=== PATIENT | male | born 1945 | race Caucasian/White ===

== ENCOUNTER 2017-11-11 10:23 | Inpatient (IN) ==
--- NOTE | 2017-11-10 23:06 | Discharge Summary ---
<Richa Hernadez - Last Filed: 11/11/17 10:06> Date of Encounter: 11/11/17 - Discharge Diagnosis (1) Arthritis of knee, left Priority: Primary Status: Acute (2) Status post total knee replacement, left Priority: Primary Status: Acute (3) HTN (hypertension) Status: Acute Qualifiers: Hypertension type: essential hypertension Qualified Code(s): I10 - Essential (primary) hypertension (4) DMII (diabetes mellitus, type 2) Priority: Secondary Status: Chronic (5) Gout Status: Acute (6) Obesity Status: Acute - Hospital Course Hospital course: Mr. Garcia is a 72 year old male - Time Spent with Patient Total time spent providing and/or coordinating discharge services: - Discharge Medications Prescriptions: Aspirin Enteric Coated [Aspirin EC] 325 mg PO BID #20 tablet. OxyCODONGoran Immed Rel [Roxicodone 5 MG] 5 mg PO Q6HR PRN 7 Days #28 tablet PRN Reason: Severe Pain Home Medications: Aspirin Enteric Coated [Aspirin EC] 325 mg PO BID #20 tablet. 11/10/17 [Rx] OxyCODONE Immed Rel [Roxicodone 5 MG] 5 mg PO Q6HR PRN 7 Days #28 tablet [Rx] Allopurinol [Zyloprim 100 MG] 100 mg PO DAILY 11/11/17 [History] Aspirin [Adult Aspirin Regimen] 81 mg PO DAILY 11/11/17 [History] Canagliflozin [Invokana] 300 mg PO DAILY 11/11/17 [History] Colesevelam [Welchol] 3,750 mg PO DAILY 11/11/17 [History] Docusate Sodium [Colace] 100 mg PO BID 11/11/17 [History] Esomeprazole Magnesium [Nexium] 40 mg PO Q72D 11/11/17 [History] Exenatide Microspheres [Bydureon] 2 mg PO QWEEK 11/11/17 [History] Glimepiride [Amaryl] 4 mg PO BID 11/11/17 [History] Lisinopril [Zestril] 10 mg PO DAILY 11/11/17 [History] NIFEdipine [Nifedipine ER] 30 mg PO DAILY 11/11/17 [History] Vit C/E/Zn/Coppr/Lutein/Zeaxan [Preservision Areds 2 Softgel] 1 cap PO DAILY [History] Allergies/Adverse Reactions: 3 Allergy/AdvReac Type Severity Reaction Status Date / Time metformin AdvReac Gastrointestinal Verified 11/11/17 11:19 Upset Dosbnwf-Woz-Arw Reductase AdvReac Muscle Pain Verified 11/11/17 11:19 Inhibitor [Statins] Primary care physician: Bipin Dial MD - Discharge Instructions Follow Up With: Bipin Dial MD [Primary Care Provider] - <Jose Mckeon - Last Filed: 11/11/17 15:02> Orders not resulted at time of discharge: Pending orders 11/11/17 00:01 XR knee LT limited 1-2V [XR] Routine H/H [Hemoglobin and Hematocrit] [HEME] Routine Date of Encounter: 11/11/17 - Discharge Diagnosis (1) Arthritis of knee, left Priority: Primary Status: Chronic (2) Status post total knee replacement, left Priority: Primary Status: Acute (3) HTN (hypertension) Priority: Secondary Status: Chronic Qualifiers: Hypertension type: essential hypertension Qualified Code(s): I10 - Essential (primary) hypertension (4) DMII (diabetes mellitus, type 2) Priority: Secondary Status: Chronic Qualifiers: Diabetes mellitus custodial insulin use: unspecified store standards associate insulin use status Diabetes mellitus complication status: with kidney complications Diabetes mellitus complication detail: with chronic kidney disease Chronic kidney disease stage: stage 3 (moderate) Qualified Code(s): E11.22 - Type 2 diabetes mellitus with diabetic chronic kidney disease; N18.3 - Chronic kidney disease, stage 3 (moderate) (5) Gout Priority: Secondary Status: Acute Qualifiers: Gout site: unspecified site Gout etiology: unspecified cause Chronicity: unspecified Qualified Code(s): M10.9 - Gout, unspecified - Hospital Course Hospital course: Mr. Garcia is a 72 year old male - Time Spent with Patient Total time spent providing and/or coordinating discharge services: Primary care physician: Bipin Dial MD
--- NOTE | 2017-11-11 11:08 | Anesthesia Evaluation PreOp ---
Date of Encounter: 11/11/17 Time of Encounter: 11:30 - Past History Planned Operation: Left knee arthoplasty (robotic) Cardiac History: HTN, Hyperlipidemia Pulmonary History: Denies Any Significant HX JOINTER MACHINE History: Denies Any Significant HX Other Medical History: Diabetes Type II (does not require insulin), GERD Anesthesia History: No Prior Anesthetic Complications Alcohol Use: none Drug use: none Medications and Allergies Aspirin Enteric Coated [Aspirin EC] 325 mg PO BID #20 tablet. 11/10/17 [Rx] OxyCODONE Immed Rel [Roxicodone 5 MG] 5 mg PO Q6HR PRN 7 Days #28 tablet [Rx] Allopurinol [Zyloprim 100 MG] 100 mg PO DAILY 11/11/17 [History] Aspirin [Adult Aspirin Regimen] 81 mg PO DAILY 11/11/17 [History] Canagliflozin [Invokana] 300 mg PO DAILY 11/11/17 [History] Colesevelam [Welchol] 3,750 mg PO DAILY 11/11/17 [History] Docusate Sodium [Colace] 100 mg PO BID 11/11/17 [History] Esomeprazole Magnesium [Nexium] 40 mg PO Q72D 11/11/17 [History] Exenatide Microspheres [Bydureon] 2 mg PO QWEEK 11/11/17 [History] Glimepiride [Amaryl] 4 mg PO BID 11/11/17 [History] Lisinopril [Zestril] 10 mg PO DAILY 11/11/17 [History] NIFEdipine [Nifedipine ER] 30 mg PO DAILY 11/11/17 [History] Vit C/E/Zn/Coppr/Lutein/Zeaxan [Preservision Areds 2 Softgel] 1 cap PO DAILY [History] 3 Allergy/AdvReac Type Severity Reaction Status Date / Time metformin AdvReac Gastrointestinal Verified 11/11/17 11:19 Upset Vyobohm-Vtd-Aoh Reductase AdvReac Muscle Pain Verified 11/11/17 11:19 Inhibitor [Statins] - Meds/Allergy Pre-op Review Medications Reviewed: Yes Allergies Reviewed: Yes Beta Blockers on Current Med List: No Anesthesia Results - Labs Laboratory Tests 11/09/17 11/09/17 11/09/17 12:31 12:31 12:31 WBC 6.6 Hgb 13.7 Hct 41.0 Plt Count 161 PT INR APTT Sodium 136 Potassium 4.7 Chloride 107 Carbon Dioxide 21 L BUN 32 H Creatinine 1.20 Est GFR ( Amer) > 60 Est GFR (Non-Af Amer) 59 L BUN/Creatinine Ratio 27 H Glucose 246 H Est Mean Plasma Glucose 169 Hemoglobin A1c 7.5 H Calculated Osmolality 297 Calcium 9.3 11/09/17 12:31 WBC Hgb Hct Plt Count PT 11.8 INR 1.1 APTT 29.2 Sodium Potassium Chloride Carbon Dioxide BUN Creatinine Est GFR ( Amer) Est GFR (Non-Af Amer) BUN/Creatinine Ratio Glucose Est Mean Plasma Glucose Hemoglobin A1c Calculated Osmolality Calcium - Imaging EKG: report reviewed, image reviewed (SINUS RHYTHM MARKED LEFT AXIS DEVIATION NONSPECIFIC T-WAVE ABNORMALITY) Additional studies: TTE: Impressions: LVEF 50-55%. Mildly dilated left ventricle. Mild left ventricular diastolic dysfunction. Normal right ventricular structure and function. Mild aortic regurgitation. No evidence of pulmonary hypertension. Anesthesia Exam Last Vital Signs Temp 98.7 F 11/11/17 10:51 Pulse 85 11/11/17 10:51 Resp 18 11/11/17 10:51 BP 128/69 11/11/17 10:51 Pulse Ox 97 11/11/17 10:51 Weight: 83 kg NPO (# of Hours): > 8 hrs - HEENT Pupil (Motor): Pupils equal, EOMI Mallampati: II Teeth: Normal Oral Opening: Greater than 3 - JOINTER MACHINE LOC: Oriented - Cardiac Rhythm: Regular Murmur: None - Pulmonary Breath Sounds: bilateral Clear Respiratory Effort: Symmetrical Anesthesia Assess/Plan ASA Score: 2 Modified Deedee Scale for Level of Consciousness: Cooperative, oriented, and tranquil Anesthetic Plan: General, Regional Monitoring Plan: Standard Monitors Recovery Plan: PACU
[2017-11-11] MEDS ORDERED: CeFAZolin Syr 2,000MG/20 ML 2,000 MG/20 ML SYRINGE IVPB ONE (11:14)
[2017-11-11] MEDS ORDERED: Ringers Solution, Lactated 1,000 ML IVC SCH ×2 (11:15→16:59)
--- NOTE | 2017-11-11 11:36 | History & Physical Report ---
Date of Encounter: 11/11/17 Time of Encounter: 11:35 24 Hour HP Update - Instructions Instructions: If the History and Physical is less than 30 days old and was completed prior to A.M. admission and or procedure and has NOT been updated on calendar day of procedure please complete this update prior to performing procedure. - Update Patient reports changes in Medical Condition: No Changes in examination, assessment, or condition: No Changes in Medication: No Preop tests/diagnostics Reviewed: Yes Surgery Remains Indicated: Yes Consent for Planned Operative Procedure(s) Verified: Yes - Pre-Operative Checklist Preoperative Checklist Indicated: No Prophylactic Antibiotic Ordered: Yes Is VTE Prophylaxis Indicated?: Yes
[2017-11-11] MEDS ORDERED: ROPIVACAINE HCL/PF 0.5% 30 ML VIAL ONE (13:38)
[2017-11-11] MEDS ORDERED: Bupivacaine/Clonidine Syringe 1 EACH SYRINGE ONE (13:39)
[2017-11-11] MEDS ORDERED: *HR* Midazolam HCl 2 MG/2 ML VIAL ONE (14:01)
[2017-11-11] MEDS ORDERED: *HR* FentaNYL (PF) 100 MCG/2 ML VIAL ONE ×2 (14:01→15:35)
[2017-11-11] MEDS ORDERED: *HR* Propofol 200 MG/20 ML VIAL IVP ONE ×2 (14:01→15:21)
[2017-11-11] MEDS ORDERED: *HR* Succinylcholine 200 MG/10 ML VIAL IVP ONE (14:02)
[2017-11-11] MEDS ORDERED: Ethanol\\Acetic Acid\\Na Ace\\Ben 1,000 ML IRRIG.SOLN IR ONE (14:04)
--- NOTE | 2017-11-11 14:52 | Anesthesia Procedures ---
Date of Encounter: 11/11/17 Time of Encounter: 14:35 Procedures: Anesthesia - Nerve Block Procedure Date: 11/11/17 Time: 14:35 Allergies/Adv Reactions: statins and metformin Checklist: Correct Patient Identifier, Correct procedure, History checked Correct side: Left Blood Thinner: No Monitor Applied: EKG, BP, Pulse Oximetry Supplemental Oxygen via Nasal Cannula (L/min): 2 Sedation: Versed (mg): 2 Sedation: Fentanyl (mcg): 100 Pre-op Neuro Deficits: No Block Type: Other (iPACK and adductor canal) Catheter placed: No Ultrasound used: Yes Anatomy identified: Yes Visual spread of Local: Yes Blood on Needle Aspiration: Yes (one time aspiration of blood, local was not inject) Smooth Injection of Local: Yes Pain with Injection of Local: No Prep: Chlorhexadine Needle: 21 x 100 mm Stimuplex Local: 0.25% Bupivicaine w/Clonidine 20 mcg/cc, Ropivacaine Number of Attempts: 1 Complications: None/effective block Vitals: Vital Signs Temperature 98.7 F 11/11/17 10:51 Pulse Rate 85 11/11/17 10:51 Respiratory Rate 18 11/11/17 10:51 Blood Pressure 128/69 11/11/17 10:51 O2 Sat by Pulse Oximetry 97 11/11/17 10:51 Temperature 98.7 F 11/11/17 10:51 Pulse Rate 63 11/11/17 14:40 Respiratory Rate 16 11/11/17 14:40 Blood Pressure 119/70 11/11/17 14:40 O2 Sat by Pulse Oximetry 96 11/11/17 14:40 Comments: performed by Kim HUMPHREY
[2017-11-11] MEDS ORDERED: *HR* Labetalol 20 MG/4 ML SYRINGE IVP PRN (14:53)
[2017-11-11] MEDS ORDERED: *HR* Promethazine 25 MG/ML VIAL IVP PRN (14:53)
[2017-11-11] MEDS ORDERED: *HR* OxyCODONE Immed Rel 5 MG TABLET PO PRN (14:53)
[2017-11-11] MEDS ORDERED: Ondansetron 4 MG/2 ML VIAL IVP ONE (14:53)
[2017-11-11] MEDS ORDERED: Dexamethasone 4 MG/ML VIAL ONE (15:00)
[2017-11-11] MEDS ORDERED: Ketorolac 30 MG/ML VIAL ONE (15:04)
[2017-11-11] MEDS ORDERED: *HR* PHENYLEPHRINE 1,000 MCG/10 ML SYRINGE IVP ONE (15:14)
--- NOTE | 2017-11-11 16:14 | Orthopedic Operative Note ---
Date of procedure: 11/11/17 Pre-op diagnosis: Left knee arthritis Post-op diagnosis: same Procedure: Procedure: Left robotic-assisted Total knee replacement Estimated blood loss: 400 cc Hardware: Metal and polyethylene replacement. [place] Femur: 6 Tibia:6 TS insert: 9 Patella: 39 Exam Under anesthesia: 1 degree flexion contracture 0 degree varus valgus as calculated by the robot full flexion and no instability Procedural Notes: Grade 4 arthritic changes medial compartment, grade 3 arthritic changes patellofemoral joint. Operative procedure: The patient was brought to the operating room and placed on the operating room table. After general anesthesia was administered the operative knee was examined. Findings were noted in the exam under anesthesia. The operative extremity was prepped and draped in sterile surgical fashion. The patient received IV antibiotics prior to skin incision. A standard midline incision was made centered over the patella. The incision was made through the skin and subcutaneous tissue. A medial parapatellar tendon approach was performed. Care was taken to preserve tissue along the medial aspect of the patella. And to protect the patella tendon. The deep MCL was released off the medial tibia. The infra patella fat pad was excised. The patella was everted and cut was made at the level of the insertion of the quadriceps and patella tendon. The patella was sized to a 39 the guide was seated and the lug holes are drilled. Knee was brought into flexion. Patient noted to have grade 4 arthritic changes medial compartment, grade 3 arthritic changes patellofemoral joint. Steinmann pins were placed in the tibia and the femur for the tibial and femoral arrays respectively. Checkpoints were also placed in the tibia and the femur for calculation purposes. The knee including the femur and the tibial registered. Osteophytes, ACL and PCL were excised at this point. Extension and flexion were assessed with a valgus stress components were adjusted on the computer to balance the knee. Femoral cuts were made first with robotic assistance, these included the anterior cut posterior cuts chamfer cuts. Tibial cut was then performed with robotic assistance as well. Bone fragments were removed, as well as the medial and lateral meniscus. The size 6 femoral guide was seated box cut was made lug holes are drilled. The size 6 tibial tray was seated and prepared with the fin cutter. Trial reduction with the 6 TS [place] revealed extension of 0 degree and 0 degree varus valgus full flexion. No varus valgus instability. Trial reduction revealed excellent patella tracking. All trial components were removed all bony surfaces were irrigated. The Tibia was seated followed by the femur, The [place] size 9 was seated and secured patella. Patient had similar findings for motion and stability. The knee was then irrigated out with 2 L of pulse irrigation. The extensor mechanism was closed with #2 FiberWire suture and #2 PDS suture. The subcutaneous tissue was then irrigated and closed deep with #1 PDS suture superficially with 0 PDS suture and skin was closed with zip tie The patient was then placed in a sterile dressing and a postoperative brace extubated and transferred to recovery room in stable condition. Anesthesia: GETA Surgeon: Jose Mckeon Was there an facilities maintenance assistant present: No Estimated blood loss (cc): 500 Condition: stable Disposition: PACU
[2017-11-11] MEDS: *HR* FentaNYL (PF) 100 MCG/2 ML VIAL IVP PRN ×2 (16:20→16:35)
[2017-11-11 16:42] LABS: Hematocrit 37.2 % (37.5-50.1); Hemoglobin 12.4 g/dL (12.9-16.9)
[2017-11-11] MEDS ORDERED: Sennosides 8.6 MG TABLET PO PRN (16:59)
[2017-11-11] MEDS ORDERED: Ondansetron 4 MG/2 ML VIAL IVP PRN (16:59)
[2017-11-11] MEDS ORDERED: *HR* Dextrose 50 % in Water (Syg) 50 ML SYRINGE IVP PRN (16:59)
[2017-11-11] MEDS ORDERED: D5% in Water 1,000 ML IVC PRN (16:59)
[2017-11-11] MEDS ORDERED: MOM Conc 10 ML UD.LIQ PO PRN (16:59)
[2017-11-11] MEDS ORDERED: Naloxone 0.4 MG/ML INJ IVP PRN (16:59)
[2017-11-11] MEDS ORDERED: Temazepam 15 MG CAPSULE PO PRN (16:59)
[2017-11-11] MEDS ORDERED: Dextrose Gel 15 GM/37.5 ML TUBE PO PRN ×2 (16:59)
[2017-11-11] MEDS: Insulin LISPRO 300 UNITS/3 ML VIAL SQ SCH ×2 (17:27→20:46)
[2017-11-11] MEDS: *HR* OxyCODONE Immed Rel 5 MG TABLET PO PRN (17:31)
[2017-11-11] MEDS: *HR* Enoxaparin 30 MG/0.3 ML SYRINGE SQ SCH (17:31)
--- NOTE | 2017-11-11 17:39 | Anesthesia Evaluation Post Op ---
Date of Encounter: 11/11/17 Time of Encounter: 17:00 - Vital Signs Vital Signs: Last Vital Signs Temp 97.7 F 11/11/17 17:25 Pulse 82 11/11/17 17:25 Resp 16 11/11/17 17:25 BP 163/73 11/11/17 17:25 Pulse Ox 92 11/11/17 17:25 - Lungs Lungs: Clear Ascult./Percussion - Airway Airway: Non-obstructed - Cardiovascular Regular Rate - Mental Status Mental Status: Alert & Oriented, Answers Appropriately - Pain Pain Scale: 4 - Nausea Vomiting Nausea Vomiting: Not Present - Hydration Hydration: Ice chips - Discharge PostOp Status: Transfer Patient to floor
[2017-11-11] MEDS ORDERED: *HR* Enoxaparin 30 MG/0.3 ML SYRINGE SQ SCH (18:00)
[2017-11-11] MEDS: *HR* OxyCODONE/APAP 5/325 TABLET PO PRN (20:27)
[2017-11-11] MEDS: *HR* Glimepiride 4 MG TABLET PO SCH (20:27)
[2017-11-12] MEDS: *HR* OxyCODONE Immed Rel 5 MG TABLET PO PRN ×4 (01:27→19:27)
[2017-11-12 01:35] LABS: Hematocrit 35.4 % (37.5-50.1); Hemoglobin 11.9 g/dL (12.9-16.9)
[2017-11-12 01:50] LABS: BUN/Creatinine Ratio 25 (6-26); Blood Urea Nitrogen 30 mg/dL (8-23); Calcium 9.2 mg/dL (8.6-10.3); Carbon Dioxide 20 mEq/L (23-29); Chloride 107 mEq/L (98-107); Glucose 230 mg/dL (70-105); Osmolality,Calculated 293 (280-300); Potassium 4.9 mEq/L (3.5-5.1); Sodium 135 mEq/L (136-145); eGFR For African Americans > 60 (> 60); eGFR For Non-African Americans 60 (> 60)
[2017-11-12] MEDS: *HR* Enoxaparin 30 MG/0.3 ML SYRINGE SQ SCH ×2 (06:32→16:54)
[2017-11-12] MEDS: NIFEdipine XL (24 HR) 30 MG TAB.ER.24 PO SCH (07:50)
[2017-11-12] MEDS: Insulin LISPRO 300 UNITS/3 ML VIAL SQ SCH ×4 (07:50→20:14)
[2017-11-12] MEDS: Aspirin Enteric Coated 81 MG Tablet PO SCH (07:50)
[2017-11-12] MEDS: [UNRECOGNIZED DRUG - OTHER] PO SCH (07:51)
[2017-11-12] MEDS: *HR* Glimepiride 4 MG TABLET PO SCH ×2 (07:51→20:14)
[2017-11-12] MEDS: (Canagliflozin [Invokana] 300 MG) PO SCH (07:51)
--- NOTE | 2017-11-12 08:42 | Orthopedics Progress Note ---
Date of Encounter: 11/12/17 Time of Encounter: 08:39 - Assessment and Plan (1) Arthritis of knee, left Current Visit: No Status: Chronic (2) Status post total knee replacement, left Current Visit: No Status: Acute (3) HTN (hypertension) Current Visit: No Status: Chronic Qualifiers: Hypertension type: essential hypertension Qualified Code(s): I10 - Essential (primary) hypertension (4) DMII (diabetes mellitus, type 2) Current Visit: No Status: Chronic Qualifiers: Diabetes mellitus assisted insulin use: unspecified assisted insulin use status Diabetes mellitus complication status: with kidney complications Diabetes mellitus complication detail: with chronic kidney disease Chronic kidney disease stage: stage 3 (moderate) Qualified Code(s): E11.22 - Type 2 diabetes mellitus with diabetic chronic kidney disease; N18.3 - Chronic kidney disease, stage 3 (moderate) (5) Gout Current Visit: No Status: Acute Qualifiers: Gout site: unspecified site Gout etiology: unspecified cause Chronicity: unspecified Qualified Code(s): M10.9 - Gout, unspecified Subjective Interval history: Patient was seen this morning doing well without complaints. Afebrile vital signs stable. Operative extremity: Neurovascularly intact Dressing clean dry and intact Calves nontender Assessment and plan: Continue with postoperative care Patient is unsafe to go home will require ECF being converted to inpatient status hct 35 Objective Vital signs: Vital Signs Temp Pulse Resp BP Pulse Ox 11/12/17 06:44 98.7 F 81 16 104/73 98 11/12/17 04:20 98.9 F 79 16 108/67 96 11/11/17 22:54 98.8 F 84 16 136/71 93 11/11/17 19:30 97.8 F 98 16 130/82 95 11/11/17 18:15 98.0 F 90 16 149/72 96 11/11/17 18:00 98.0 F 97 16 154/70 95 11/11/17 17:25 97.7 F 82 16 163/73 92 11/11/17 17:05 98.5 F 83 16 154/75 100 11/11/17 16:55 98.5 F 83 16 141/78 100 11/11/17 16:45 98.5 F 83 16 154/83 100 11/11/17 16:35 98.3 F 84 16 143/76 100 11/11/17 16:25 98.3 F 79 16 150/71 100 11/11/17 16:15 98.3 F 79 16 143/72 99 11/11/17 14:54 65 16 116/73 96 11/11/17 14:40 63 16 119/70 96 11/11/17 14:25 72 16 115/63 95 11/11/17 14:20 83 18 134/90 98 11/11/17 10:51 98.7 F 85 18 128/69 97 Intake and Output 11/11/17 11/12/17 11/12/17 23:59 07:59 15:59 Intake Total 100 / 100 450 / 450 Output Total 1000 / 1000 900 / 900 Balance -900 / -900 -450 / -450 Intake: IV Fluids 100 / 100 Ancef 2,000 MG In 0.9 % Sodium 100 / 100 Chloride 100 ML @ 200 mls/hr IVPB Q8H [facility] Rx#:[id number] Oral 450 / 450 Output: Urine 600 / 600 900 / 900 Estimated Blood Loss 400 / 400 Other: Blood Glucose* 190 156 - Labs CBC & BMP: 11/12/17 01:17 11/12/17 01:17 Labs: Abnormal lab results Hgb 11.9 g/dL (12.9-16.9) L 11/12/17 01:17 Hct 35.4 % (37.5-50.1) L 11/12/17 01:17 Sodium 135 mEq/L (136-145) L 11/12/17 01:17 Carbon Dioxide 20 mEq/L (23-29) L 11/12/17 01:17 BUN 30 mg/dL (8-23) H 11/12/17 01:17 Glucose 230 mg/dL (70-105) H 11/12/17 01:17 POC Glucose 170 mg/dL (70-99) H 11/11/17 10:46 - VTE Documentation of Mechanical Device: Venous foot pump, device Consult Discharge Plan - Plan Referrals: Bipin Dial MD [Primary Care Provider] - Prescriptions: Aspirin Enteric Coated [Aspirin EC] 325 mg PO BID #20 tablet.dr AguilarCODONGoran Immed Rel [Roxicodone 5 MG] 5 mg PO Q6HR PRN 7 Days #28 tablet PRN Reason: Severe Pain
[2017-11-12] MEDS: traMADol 50 MG TABLET PO PRN ×2 (10:26→16:53)
[2017-11-12] MEDS ORDERED: Acetaminophen IV 1,000 MG/100 ML INFUS..BTL IVPB PRN (19:29)
[2017-11-12] MEDS ORDERED: Ketorolac 30 MG/ML VIAL IVP PRN (19:30)
--- NOTE | 2017-11-12 21:22 | Event Note ---
Date of Encounter: 11/12/17 Time of Encounter: 12:30 PCR - POD#1 LEft TKR Afebrile, vital signs stable. Labs reviewed. H/H - stable, asymptomatic Pain control: adequate Participating in PT. Assessment and plan: Continue with postoperative care Discharge plan: ECF, continuity placed, discharge THURSDAY.
--- NOTE | 2017-11-12 21:24 | Physician Discharge Referral ---
ExtendedCare Referral Info Transfer To: F Provider in Charge: Provider in Charge after Transfer: PCP Institutional Level of Care: Skilled - Diagnosis (1) Arthritis of knee, left Priority: Primary Status: Chronic (2) Status post total knee replacement, left Priority: Primary Status: Acute (3) HTN (hypertension) Priority: Secondary Status: Chronic (4) DMII (diabetes mellitus, type 2) Priority: Secondary Status: Chronic (5) Gout Priority: Secondary Status: Chronic (6) Obesity Priority: Secondary Status: Chronic Expected Duration of Placement: < 30 days Prognosis: Good Aware of Diagnosis: Patient Aware of Prognosis: Patient - Transfer Medications Home Medications: Aspirin Enteric Coated [Aspirin EC] 325 mg PO BID #20 tablet. 11/10/17 [Rx] OxyCODONE Immed Rel [Roxicodone 5 MG] 5 mg PO Q6HR PRN 7 Days #28 tablet [Rx] Allopurinol [Zyloprim 100 MG] 100 mg PO DAILY 11/11/17 [History] Aspirin [Adult Aspirin Regimen] 81 mg PO DAILY 11/11/17 [History] Canagliflozin [Invokana] 300 mg PO DAILY 11/11/17 [History] Colesevelam [Welchol] 3,750 mg PO DAILY 11/11/17 [History] Docusate Sodium [Colace] 100 mg PO BID 11/11/17 [History] Esomeprazole Magnesium [Nexium] 40 mg PO Q72D 11/11/17 [History] Exenatide Microspheres [Bydureon] 2 mg PO QWEEK 11/11/17 [History] Glimepiride [Amaryl] 4 mg PO BID 11/11/17 [History] Lisinopril [Zestril] 10 mg PO DAILY 11/11/17 [History] NIFEdipine [Nifedipine ER] 30 mg PO DAILY 11/11/17 [History] Vit C/E/Zn/Coppr/Lutein/Zeaxan [Preservision Areds 2 Softgel] 1 cap PO DAILY [History] Allergies/Adverse Reactions: 3 Allergy/AdvReac Type Severity Reaction Status Date / Time metformin AdvReac Gastrointestinal Verified 11/11/17 11:19 Upset Vpywdmw-Jrh-Sdt Reductase AdvReac Muscle Pain Verified 11/11/17 11:19 Inhibitor [Statins] - Respiratory Orders None Smoking Cessation: Smoking cessation has been advised. For more information, call the [place] Tobacco Quit Line at 2-069-AQEG-NOW. - Mobility Orders Chair, Ambulate - Rehabiliation Orders Rehab Potential: Good Rehab Orders: ROM Exercises, Evaluation for Physical Therapy, Evaluation for Occupational Therapy Other: Opsite dressing, leave intact until first post-operative visit. If dressing becomes >50% saturated, contact office, remove dressing and place appropriate dressing in its place. Do not allow for dressing to get wet. Zipline/[place] in place, plan to remove at post-operative day #14-16. Total Joint Precautions x 6 weeks Apply cold therapy wrap 3-6x/day for 20 minutes at a time. Encourage ambulation throughout the day Use Incentive spirometer 10x/hour. Elevate affected extremity above heart as tolerated. Brace: Wear knee immobilizer at night x 2 weeks.~ CERTIFICATION: I certify that the transfer of the above named patient to an Extended Care Facility is necessary for the continuing treatment of the diagnosis listed. The above information is true and accurate reflection of patient's current condition. Confidential - Redisclosure prohibited without a patient's written consent.
[2017-11-13 01:22] LABS: Hematocrit 34.1 % (37.5-50.1); Hemoglobin 11.5 g/dL (12.9-16.9)
[2017-11-13 01:38] LABS: BUN/Creatinine Ratio 26 (6-26); Blood Urea Nitrogen 34 mg/dL (8-23); Calcium 9.5 mg/dL (8.6-10.3); Carbon Dioxide 24 mEq/L (23-29); Chloride 104 mEq/L (98-107); Glucose 192 mg/dL (70-105); Osmolality,Calculated 293 (280-300); Sodium 135 mEq/L (136-145); eGFR For African Americans > 60 (> 60); eGFR For Non-African Americans 53 (> 60)
[2017-11-13] MEDS: *HR* OxyCODONE Immed Rel 5 MG TABLET PO PRN ×5 (04:27→22:12)
[2017-11-13] MEDS: *HR* Enoxaparin 30 MG/0.3 ML SYRINGE SQ SCH ×2 (05:09→16:52)
--- NOTE | 2017-11-13 06:48 | Orthopedics Progress Note ---
Date of Encounter: 11/13/17 Time of Encounter: 06:47 - Assessment and Plan (1) Arthritis of knee, left Current Visit: No Status: Chronic (2) Status post total knee replacement, left Current Visit: No Status: Acute (3) HTN (hypertension) Current Visit: No Status: Chronic Qualifiers: Hypertension type: essential hypertension Qualified Code(s): I10 - Essential (primary) hypertension (4) DMII (diabetes mellitus, type 2) Current Visit: No Status: Chronic Qualifiers: Diabetes mellitus retirement insulin use: unspecified manager sap insulin use status Diabetes mellitus complication status: with kidney complications Diabetes mellitus complication detail: with chronic kidney disease Chronic kidney disease stage: stage 3 (moderate) Qualified Code(s): E11.22 - Type 2 diabetes mellitus with diabetic chronic kidney disease; N18.3 - Chronic kidney disease, stage 3 (moderate) (5) Gout Current Visit: No Status: Chronic Qualifiers: Gout site: unspecified site Gout etiology: unspecified cause Chronicity: unspecified Qualified Code(s): M10.9 - Gout, unspecified Subjective Interval history: Patient was seen this morning doing well without complaints. Patient with concern for chest pain overnight, repeat EKG no changes. This morning no complaints of chest pain Afebrile vital signs stable. Operative extremity: Neurovascularly intact Dressing clean dry and intact Calves nontender Assessment and plan: Continue with postoperative care Hematocrit 34 discharged when placement Objective Vital signs: Vital Signs Temp Pulse Resp BP Pulse Ox 11/13/17 03:47 98.7 F 87 16 118/64 93 11/12/17 22:35 97.5 F L 91 16 117/63 94 11/12/17 19:14 97.6 F 86 16 132/73 93 11/12/17 14:30 98.5 F 81 16 134/67 98 11/12/17 10:28 98.4 F 76 18 139/71 98 Intake and Output 11/12/17 11/12/17 11/13/17 15:59 23:59 07:59 Intake Total 1450 / 1450 200 / 200 300 / 300 Output Total 500 / 500 125 / 125 325 / 325 Balance 950 / 950 75 / 75 -25 / -25 Intake: IV Fluids 1000 / 1000 Lactated Ringers 1,000 ML @ 75 1000 / 1000 mls/hr IVC .[id number] [facility] Rx#: [id number] Oral 450 / 450 200 / 200 300 / 300 Output: Urine 500 / 500 125 / 125 325 / 325 Other: Meal Lunch Percent of Meal Consumed 75% Blood Glucose* 170 182 - Labs CBC & BMP: 11/13/17 00:57 11/13/17 00:57 Labs: Abnormal lab results Hgb 11.5 g/dL (12.9-16.9) L 11/13/17 00:57 Hct 34.1 % (37.5-50.1) L 11/13/17 00:57 Sodium 135 mEq/L (136-145) L 11/13/17 00:57 BUN 34 mg/dL (8-23) H 11/13/17 00:57 Creatinine 1.33 mg/dL (0.70-1.30) H 11/13/17 00:57 Est GFR (Non-Af Amer) 53 (> 60) L 11/13/17 00:57 Glucose 192 mg/dL (70-105) H 11/13/17 00:57 POC Glucose 190 mg/dL (70-99) H 11/11/17 19:11 - VTE Documentation of Mechanical Device: Venous foot pump, device Consult Discharge Plan - Plan Referrals: Bipin Dial MD [Primary Care Provider] -
[2017-11-13] MEDS: [UNRECOGNIZED DRUG - OTHER] PO SCH (08:15)
[2017-11-13] MEDS: (Canagliflozin [Invokana] 300 MG) PO SCH (08:15)
[2017-11-13] MEDS: Insulin LISPRO 300 UNITS/3 ML VIAL SQ SCH ×4 (08:21→22:13)
[2017-11-13] MEDS: *HR* Glimepiride 4 MG TABLET PO SCH ×2 (08:22→21:06)
[2017-11-13] MEDS: Aspirin Enteric Coated 81 MG Tablet PO SCH (08:22)
[2017-11-13] MEDS: NIFEdipine XL (24 HR) 30 MG TAB.ER.24 PO SCH (08:22)
--- NOTE | 2017-11-13 12:06 | Event Note ---
Date of Encounter: 11/13/17 Time of Encounter: 12:05 PCR - POD#. Patient seen at bedside. Afebrile, vital signs stable. Intermittent hypotensive - asymp. Encourage hydration. Hold BP meds. Labs reviewed. H/H - stable, asymptomatic Slight elevation of CRE - continue oral hydration Pain control: adequate Participating in PT. All questions and concerns addressed. Educated on use of incentive spirometer. Encouraged ambulation and proper hydration. Patient educated on post-operative restrictions and post-operative care. Assessment and plan: Continue with postoperative care Discharge plan: ECF on Thursday - continuity placed
[2017-11-14] MEDS: *HR* OxyCODONE Immed Rel 5 MG TABLET PO PRN ×3 (02:30→10:53)
[2017-11-14] MEDS: *HR* Enoxaparin 30 MG/0.3 ML SYRINGE SQ SCH ×2 (05:39→16:49)
[2017-11-14] MEDS: Aspirin Enteric Coated 81 MG Tablet PO SCH (08:35)
[2017-11-14] MEDS: *HR* Glimepiride 4 MG TABLET PO SCH ×2 (08:35→20:19)
[2017-11-14] MEDS: (Canagliflozin [Invokana] 300 MG) PO SCH (08:36)
[2017-11-14] MEDS: [UNRECOGNIZED DRUG - OTHER] PO SCH (08:36)
[2017-11-14] MEDS: NIFEdipine XL (24 HR) 30 MG TAB.ER.24 PO SCH (08:41)
[2017-11-14] MEDS: Insulin LISPRO 300 UNITS/3 ML VIAL SQ SCH ×4 (08:41→21:12)
--- NOTE | 2017-11-14 09:17 | Orthopedics Progress Note ---
Date of Encounter: 11/14/17 Time of Encounter: 09:17 Subjective Interval history: Patient was seen this morning doing well without complaints. Afebrile vital signs stable. Operative extremity: Neurovascularly intact Dressing clean dry and intact Calves nontender Assessment and plan: Continue with postoperative care Objective Vital signs: Vital Signs Temp Pulse Resp BP Pulse Ox 11/14/17 07:21 99.0 F 111 14 128/75 99 11/14/17 03:41 99.1 F 94 16 111/72 94 11/13/17 23:23 99.3 F 97 16 130/77 92 11/13/17 19:50 99.1 F 82 14 131/74 92 11/13/17 16:03 98.4 F 87 16 129/73 94 11/13/17 11:48 98.5 F 104 18 103/62 95 Intake and Output 11/13/17 11/14/17 11/14/17 23:59 07:59 15:59 Output Total 200 / 200 Balance -200 / -200 Output: Urine 200 / 200 Other: Blood Glucose* 188 184 - Labs CBC & BMP: 11/13/17 00:57 11/13/17 00:57 Labs: Abnormal lab results Hgb 11.5 g/dL (12.9-16.9) L 11/13/17 00:57 Hct 34.1 % (37.5-50.1) L 11/13/17 00:57 Sodium 135 mEq/L (136-145) L 11/13/17 00:57 BUN 34 mg/dL (8-23) H 11/13/17 00:57 Creatinine 1.33 mg/dL (0.70-1.30) H 11/13/17 00:57 Est GFR (Non-Af Amer) 53 (> 60) L 11/13/17 00:57 Glucose 192 mg/dL (70-105) H 11/13/17 00:57 POC Glucose 188 mg/dL (70-99) H 11/13/17 19:59 - VTE Documentation of Mechanical Device: Venous foot pump, device Consult Discharge Plan - Plan Referrals: Bipin Dial MD [Primary Care Provider] -
--- NOTE | 2017-11-14 11:33 | Electrocardiograph Report ---
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
[2017-11-14] MEDS: *HR* OxyCODONE/APAP 5/325 TABLET PO PRN ×2 (14:20→20:19)
[2017-11-15] MEDS: *HR* Enoxaparin 30 MG/0.3 ML SYRINGE SQ SCH (05:54)
[2017-11-15 07:21] VITALS: BP 115/61
[2017-11-15] MEDS: Insulin LISPRO 300 UNITS/3 ML VIAL SQ SCH (09:10)
[2017-11-15] MEDS: [UNRECOGNIZED DRUG - OTHER] PO SCH (09:11)
[2017-11-15] MEDS: (Canagliflozin [Invokana] 300 MG) PO SCH (09:11)
[2017-11-15] MEDS: *HR* OxyCODONE Immed Rel 5 MG TABLET PO PRN (09:12)
[2017-11-15] MEDS: Aspirin Enteric Coated 81 MG Tablet PO SCH (09:13)
[2017-11-15] MEDS: NIFEdipine XL (24 HR) 30 MG TAB.ER.24 PO SCH (09:13)
[2017-11-15] MEDS: *HR* Glimepiride 4 MG TABLET PO SCH (09:13)
--- NOTE | 2017-11-15 10:00 | Orthopedics Progress Note ---
Date of Encounter: 11/15/17 Time of Encounter: 10:00 Subjective Interval history: Patient was seen this morning doing well without complaints. Afebrile vital signs stable. Operative extremity: Neurovascularly intact Dressing clean dry and intact Calves nontender Assessment and plan: Continue with postoperative care Objective Vital signs: Vital Signs Temp Pulse Resp BP Pulse Ox 11/15/17 07:12 99.2 F 96 16 115/61 96 11/15/17 03:27 99.1 F 80 17 94/54 96 11/14/17 23:29 98.8 F 94 17 100/59 94 11/14/17 19:17 99.2 F 98 18 106/57 92 11/14/17 16:31 98.5 F 90 14 94/51 95 11/14/17 11:52 98.4 F 66 14 103/59 96 Intake and Output 11/14/17 11/15/17 11/15/17 23:59 07:59 15:59 Intake Total 360 / 360 Output Total 100 / 100 Balance 260 / 260 Intake: Oral 360 / 360 Output: Urine 100 / 100 Other: Meal Dinner Percent of Meal Consumed 100% Blood Glucose* 151 154 - Labs CBC & BMP: 11/13/17 00:57 11/13/17 00:57 Labs: Abnormal lab results Hgb 11.5 g/dL (12.9-16.9) L 11/13/17 00:57 Hct 34.1 % (37.5-50.1) L 11/13/17 00:57 Sodium 135 mEq/L (136-145) L 11/13/17 00:57 BUN 34 mg/dL (8-23) H 11/13/17 00:57 Creatinine 1.33 mg/dL (0.70-1.30) H 11/13/17 00:57 Est GFR (Non-Af Amer) 53 (> 60) L 11/13/17 00:57 Glucose 192 mg/dL (70-105) H 11/13/17 00:57 POC Glucose 151 mg/dL (70-99) H 11/14/17 19:41 - VTE Documentation of Mechanical Device: Venous foot pump, device Consult Discharge Plan - Plan Additional Instructions: Discharge Instructions: Total Knee Replacement Please call [facility] ([phone]), your Primary Care Physician, or report to the Emergency Room if you have any of the following symptoms: Nausea, vomiting, fever greater that 101.5, swelling, chest pain, shortness of breath, increased pain/redness/drainage/odor for your incision site, numbness/ tingling, or any other concerning symptoms. ACTIVITY:Weight-bearing as tolerated. You may progress off support (crutches or walker) as tolerated. MEDICATIONS: Upon discharge resume your home medications. Take all the medications as prescribed. Take a stool softener if taking narcotic pain medications. Stool softeners are only effective if you drink enough fluids. Drink 6-8 glass of water or fluids a day, unless this is not allowed for another health problem. Despite using stool softeners, if you haven't had a bowel movement in 3 days, please switch to a gentle laxative. Gentle laxatives are sold over the counter. You should have a bowel movement within 24 hours, if not call the office. You will be discharged from the hospital with a prescription for pain medication. You are encouraged to decrease the use of narcotic pain medication as tolerated. Should you require a refill, please call the office. [facility] prescribes narcotic pain medication for only 4-6 weeks after surgery. If you require pain medication beyond this time period, you may be referred to your Primary Care Physician or to the Pain Clinic for further evaluation. Plan ahead for refills on pain medication as many narcotics either need to be picked up at the office or mailed. It is best to call 48-72 hours in advance of needing a prescription refill so you don't run out of medication. To help control the post-operative pain, you may take NSAIDs (Aleve,Advil, Motrin, Ibuprofen, Naprosyn) or Tylenol as prescribed on the bottle in addition to the pain medication. ANTICOAGULATION (blood thinners): Continue your Aspirin, Lovenox or Coumadin as prescribed to help prevent a blood clot in the leg or in the lungs. As long as your incision remains dry and you tolerate the NSAIDs (Aleve, Advil, Motrin, ibuprofen, naprosyn), it is OK to use the NSAIDS while you are taking your anticoagulation medication. Should your incision start to drain, stop the NSAID and contact our office. Common symptoms of blood clot in the legs include: localized pain, swelling, calf tenderness, redness or discoloration of the skin. Blood clot in the lung symptoms include: shortness of breath, rapid pulse, sweating, and chest pain that worsens with deep breathing, coughing up blood, lightheadedness, feelings of anxiety. If you experience any of these symptoms notify your physician immediately, go to the emergency room, or if having trouble breathing, call 911. WOUND CARE: Leave the dressing on for 7 to 10days. You may change the dressing if it becomes saturated greater than 50%. Do not get the dressing wet at anytime. Wash your hands with antibacterial soap, rinse and dry prior to any wound care. If you have chon the visiting nurse or rehab facility can remove the stapes 10-14 days after surgery and place steri-strips across the wound. Leave the steri-strips in place until they fall off on their won. You may let water from the shower run on top of the steri-strips. If you do not have a visiting nurse or rehab facility, you will need to return to the office at 10-14 days for the chon to be removed. If you have itching or redness around the dressing call the office. FOLLOW-UP: Please follow up with your surgeon in the orthopedic clinic in 4 weeks from the day of surgery. If you have chon that need to be removed, you will need to come back to the office in 10-14 days from the day of surgery. Referrals: Joycelyn Sanchez PAC [Physician Analytical Lead] - 11/27/17 9:15 am Jose Mckeon MD [Partnered Physician] - 12/09/17 4:50 pm Richa Hernadez PAC [Physician Analytical Lead] - 11/20/17 10:30 am Bipin Dial MD [Primary Care Provider] -
== END 2017-11-15 09:51 | DRG 470 ==
LOC: SAMDAY 10:23 → 2ANU 13:57 → 3NENU 16:57
PROVIDERS: ADMIT Orthopaedic Surgery; ATTEND Orthopaedic Surgery

== ENCOUNTER 2020-04-18 09:21 | Inpatient (IN) ==
[2020-04-18] MEDS ORDERED: Dexamethasone 4 MG/ML VIAL IVP ONE (09:33)
[2020-04-18 09:50] LABS: Basophils # 0.1 K/mcL (0.0-0.2); Basophils % 0.9 %; Hematocrit 39.6 % (37.5-50.1); Hemoglobin 12.8 g/dL (12.9-16.9); Immature Granulocytes % 3.5 % (0-4); Lymphocytes # 0.7 K/mcL (0.6-4.6); Lymphocytes % 9.9 %; Mean Corpuscular HGB Conc 32.3 g/dL (31.6-35.5); Mean Corpuscular Hemoglobin 31.9 pg (28.0-33.3); Mean Corpuscular Volume 98.8 fL (83.0-100.0); Mean Platelet Volume 9.4 fL (9.4-12.4); Monocytes # 0.9 K/mcL (0.0-1.3); Neutrophils # 4.7 K/mcL (1.6-8.9); Platelet Count 210 K/mcL (140-400); Red Blood Count 4.01 M/mcL (4.19-5.50); Red Cell Distribution Width 13.5 % (11.5-14.5); Segmented Neutrophils % 71.7 %
[2020-04-18 09:52] LABS: INR 1.3; Prothrombin Time 14.6 Seconds (9.4-12.1)
[2020-04-18 10:01] LABS: White Blood Count 6.6 K/mcL (4.3-11.1)
[2020-04-18 10:08] LABS: Alanine Aminotransferase 18 Units/L (7-52); Alkaline Phosphatase 65 Units/L (34-104); Aspartate Amino Transferase 37 Units/L (13-39); BUN/Creatinine Ratio 31 (6-26); Bilirubin,Direct 0.3 mg/dL (0.0-0.2); Bilirubin,Indirect 0.6 mg/dL (0.0-1.0); Bilirubin,Total 0.9 mg/dL (0.3-1.0); Blood Urea Nitrogen 47 mg/dL (8-23); C-Reactive Protein 160 mg/L (Less than 10); Carbon Dioxide 19 mEq/L (23-29); Chloride 100 mEq/L (98-107); Globulin 3.9 g/dL (2.4-3.5); Glucose 315 mg/dL (70-105); Lactate Dehydrogenase 419 Units/L (140-271); Magnesium 2.2 mg/dL (1.6-2.6); Osmolality,Calculated 296 (280-300); Potassium 4.7 mEq/L (3.5-5.1); Sodium 131 mEq/L (136-145); Total Protein 7.9 g/dL (6.4-8.9); Troponin I 0.04 ng/mL (< 0.04); eGFR For African Americans 54 (> 60); eGFR For Non-African Americans 44 (> 60)
[2020-04-18 10:26] LABS: Ferritin > 1500 ng/mL (20-250)
[2020-04-18] MEDS ORDERED: Azithromycin 500 MG in 0.9 % Sodium Chloride 250 ML IVPB ONE (10:31)
[2020-04-18] MEDS ORDERED: cefTRIAXone 1,000 MG in Water for inj. (sterile) 10 ML IVP ONE (10:32)
[2020-04-18] MEDS ORDERED: 0.9 % Sodium Chloride 1,000 ML IVC ONE (10:34)
[2020-04-18] MEDS ORDERED: Naloxone 0.4 MG/ML INJ IVP PRN (10:59)
[2020-04-18] MEDS ORDERED: Acetaminophen 325 MG TABLET PO PRN (11:05)
[2020-04-18] MEDS ORDERED: Dextrose Gel 15 GM/37.5 ML TUBE PO PRN ×2 (11:09)
[2020-04-18] MEDS ORDERED: D5% in Water 1,000 ML IVC PRN (11:09)
[2020-04-18] MEDS ORDERED: *HR* Dextrose 50 % in Water (Vial) 50 ML VIAL IVP PRN (11:09)
[2020-04-18 12:39] LABS: ABG Base Excess -4 mEq/L (-2 to 3); ABG HCO3 19 mEq/L (21-27); ABG Oxygen Saturation 94 % (95-98); ABG PCO2 29 mmHg (35-45); ABG PH 7.44 pH Units (7.32-7.45); ABG PO2 68 mmHg (85-104); ABG TCO2 20 mEq/L (20-26)
[2020-04-18] MEDS: Insulin LISPRO 300 UNITS/3 ML VIAL SQ SCH ×3 (13:55→20:41)
[2020-04-18] MEDS: *HR* Ticagrelor 90 MG TABLET PO SCH (20:15)
[2020-04-18] MEDS: Dexamethasone 4 MG/ML VIAL IVP SCH (20:15)
[2020-04-18] MEDS ORDERED: Insulin DETEMIR 100 UNIT/ML X5UNITS SQ SCH (21:00)
[2020-04-19 03:02] LABS: Basophils % 0.3 %; Hematocrit 33.8 % (37.5-50.1); Hemoglobin 11.3 g/dL (12.9-16.9); Immature Granulocytes % 2.8 % (0-4); Lymphocytes # 0.3 K/mcL (0.6-4.6); Lymphocytes % 4.2 %; Mean Corpuscular HGB Conc 33.4 g/dL (31.6-35.5); Mean Corpuscular Hemoglobin 32.7 pg (28.0-33.3); Mean Corpuscular Volume 97.7 fL (83.0-100.0); Mean Platelet Volume 9.4 fL (9.4-12.4); Monocytes # 0.4 K/mcL (0.0-1.3); Monocytes % 5.7 %; Neutrophils # 5.4 K/mcL (1.6-8.9); Platelet Count 191 K/mcL (140-400); Red Blood Count 3.46 M/mcL (4.19-5.50); Red Cell Distribution Width 13.4 % (11.5-14.5); White Blood Count 6.2 K/mcL (4.3-11.1)
[2020-04-19 03:24] LABS: BUN/Creatinine Ratio 42 (6-26); Blood Urea Nitrogen 56 mg/dL (8-23); Calcium 9.1 mg/dL (8.6-10.3); Carbon Dioxide 18 mEq/L (23-29); Chloride 105 mEq/L (98-107); Glucose 311 mg/dL (70-105); Lactate Dehydrogenase 373 Units/L (140-271); Magnesium 2.4 mg/dL (1.6-2.6); Osmolality,Calculated 301 (280-300); Potassium 4.9 mEq/L (3.5-5.1); Sodium 132 mEq/L (136-145); eGFR For African Americans > 60 (> 60); eGFR For Non-African Americans 52 (> 60)
[2020-04-19 03:33] LABS: Fibrinogen 672 mg/dL (169-393)
[2020-04-19 03:35] LABS: D-Dimer 1357 ng/mLFEU (0-500)
[2020-04-19 03:44] LABS: Ferritin > 1500 ng/mL (20-250)
[2020-04-19] MEDS: *HR* Enoxaparin 40 MG/0.4 ML SYRINGE SQ SCH (06:51)
[2020-04-19] MEDS ORDERED: Furosemide 20 MG TABLET PO PRN (07:40)
[2020-04-19] MEDS ORDERED: Azithromycin 500 MG in 0.9 % Sodium Chloride 250 ML IVPB SCH (08:00)
[2020-04-19] MEDS ORDERED: lisinopriL 5 MG TABLET PO SCH (09:00)
[2020-04-19] MEDS ORDERED: levoFLOXacin 750 MG/150 ML 750 MG/150 ML BAG IVPB SCH (09:00)
[2020-04-19] MEDS: Aspirin Enteric Coated 81 MG Tablet PO SCH (09:07)
[2020-04-19] MEDS: Furosemide 20 MG TABLET PO SCH (09:07)
[2020-04-19] MEDS: Metoprolol XL (24 HR) Succ 25 MG TAB.ER.24H PO SCH (09:07)
[2020-04-19] MEDS: Dexamethasone 4 MG/ML VIAL IVP SCH (09:07)
[2020-04-19] MEDS: Sacubitril/Valsartan 24/26 MG 1 TABLET PO SCH ×2 (09:07→20:58)
[2020-04-19] MEDS: *HR* Ticagrelor 90 MG TABLET PO SCH ×2 (09:07→21:00)
[2020-04-19] MEDS: Insulin DETEMIR 100 UNIT/ML X5UNITS SQ SCH ×2 (09:07→21:00)
[2020-04-19] MEDS: allopurinoL 100 MG TABLET PO SCH (09:07)
[2020-04-19] MEDS: cefTRIAXone 1,000 MG in Water for inj. (sterile) 10 ML IVP SCH (09:08)
[2020-04-19] MEDS: Insulin LISPRO 300 UNITS/3 ML VIAL SQ SCH ×4 (09:12→21:01)
[2020-04-19] MEDS: Ipratropium 1 PUFF INHALER IH SCH ×4 (11:14→20:02)
[2020-04-19] MEDS ORDERED: Dexamethasone 4 MG/ML VIAL IVP ONE (14:22)
[2020-04-20] MEDS: Ipratropium 1 PUFF INHALER IH SCH ×6 (00:02→19:56)
[2020-04-20] MEDS: *HR* Enoxaparin 40 MG/0.4 ML SYRINGE SQ SCH (06:36)
[2020-04-20] MEDS: Doxycycline 100 MG CAPSULE PO SCH ×2 (06:36→17:50)
[2020-04-20 07:52] LABS: Basophils % 0.2 %; Hematocrit 34.4 % (37.5-50.1); Hemoglobin 11.3 g/dL (12.9-16.9); Immature Granulocytes % 1.7 % (0-4); Lymphocytes # 0.4 K/mcL (0.6-4.6); Mean Corpuscular HGB Conc 32.8 g/dL (31.6-35.5); Mean Corpuscular Hemoglobin 31.7 pg (28.0-33.3); Mean Corpuscular Volume 96.4 fL (83.0-100.0); Mean Platelet Volume 9.6 fL (9.4-12.4); Monocytes % 5.1 %; Neutrophils # 17.5 K/mcL (1.6-8.9); Platelet Count 276 K/mcL (140-400); Red Blood Count 3.57 M/mcL (4.19-5.50); Red Cell Distribution Width 13.3 % (11.5-14.5)
[2020-04-20 08:02] LABS: White Blood Count 19.2 K/mcL (4.3-11.1)
[2020-04-20] MEDS: Aspirin Enteric Coated 81 MG Tablet PO SCH (08:39)
[2020-04-20] MEDS: *HR* Ticagrelor 90 MG TABLET PO SCH ×2 (08:39→21:08)
[2020-04-20] MEDS: Metoprolol XL (24 HR) Succ 25 MG TAB.ER.24H PO SCH (08:39)
[2020-04-20] MEDS: Dexamethasone 4 MG/ML VIAL IVP SCH (08:40)
[2020-04-20] MEDS: cefTRIAXone 1,000 MG in Water for inj. (sterile) 10 ML IVP SCH (08:40)
[2020-04-20] MEDS: Furosemide 20 MG TABLET PO SCH (08:40)
[2020-04-20] MEDS: allopurinoL 100 MG TABLET PO SCH (08:40)
[2020-04-20] MEDS: Sacubitril/Valsartan 24/26 MG 1 TABLET PO SCH ×2 (08:40→21:08)
[2020-04-20] MEDS: Insulin LISPRO 300 UNITS/3 ML VIAL SQ SCH ×4 (08:41→21:08)
[2020-04-20] MEDS: Insulin DETEMIR 100 UNIT/ML X5UNITS SQ SCH ×2 (08:44→21:08)
[2020-04-20 12:14] LABS: Alanine Aminotransferase 15 Units/L (7-52); Albumin 3.6 g/dL (3.5-5.7); Alkaline Phosphatase 58 Units/L (34-104); Aspartate Amino Transferase 32 Units/L (13-39); BUN/Creatinine Ratio 45 (6-26); Bilirubin,Total 0.5 mg/dL (0.3-1.0); Blood Urea Nitrogen 63 mg/dL (8-23); C-Reactive Protein 48 mg/L (Less than 10); Calcium 9.4 mg/dL (8.6-10.3); Carbon Dioxide 15 mEq/L (23-29); Chloride 105 mEq/L (98-107); Ferritin > 1500 ng/mL (20-250); Globulin 3.5 g/dL (2.4-3.5); Glucose 390 mg/dL (70-105); Lactate Dehydrogenase 469 Units/L (140-271); Osmolality,Calculated 310 (280-300); Potassium 4.9 mEq/L (3.5-5.1); Sodium 133 mEq/L (136-145); Total Protein 7.1 g/dL (6.4-8.9); eGFR For African Americans 60 (> 60); eGFR For Non-African Americans 49 (> 60)
[2020-04-21] MEDS: Ipratropium 1 PUFF INHALER IH SCH ×7 (00:29→23:19)
[2020-04-21 01:25] LABS: Basophils % 0.2 %; Hematocrit 35.3 % (37.5-50.1); Hemoglobin 11.9 g/dL (12.9-16.9); Immature Granulocytes % 1.7 % (0-4); Lymphocytes # 0.3 K/mcL (0.6-4.6); Lymphocytes % 1.9 %; Mean Corpuscular HGB Conc 33.7 g/dL (31.6-35.5); Mean Corpuscular Volume 97.8 fL (83.0-100.0); Mean Platelet Volume 9.5 fL (9.4-12.4); Monocytes # 1.2 K/mcL (0.0-1.3); Monocytes % 6.6 %; Neutrophils # 15.9 K/mcL (1.6-8.9); Platelet Count 267 K/mcL (140-400); Red Blood Count 3.61 M/mcL (4.19-5.50); Red Cell Distribution Width 13.4 % (11.5-14.5); Segmented Neutrophils % 89.6 %; White Blood Count 17.8 K/mcL (4.3-11.1)
[2020-04-21 01:42] LABS: Alanine Aminotransferase 15 Units/L (7-52); Albumin 3.4 g/dL (3.5-5.7); Albumin/Globulin Ratio 0.9 (1.1-2.2); Alkaline Phosphatase 51 Units/L (34-104); Aspartate Amino Transferase 24 Units/L (13-39); BUN/Creatinine Ratio 44 (6-26); Bilirubin,Total 0.5 mg/dL (0.3-1.0); Blood Urea Nitrogen 59 mg/dL (8-23); Calcium 9.4 mg/dL (8.6-10.3); Carbon Dioxide 21 mEq/L (23-29); Chloride 105 mEq/L (98-107); Globulin 3.7 g/dL (2.4-3.5); Glucose 186 mg/dL (70-105); Osmolality,Calculated 303 (280-300); Potassium 4.7 mEq/L (3.5-5.1); Sodium 136 mEq/L (136-145); Total Protein 7.1 g/dL (6.4-8.9); eGFR For African Americans > 60 (> 60); eGFR For Non-African Americans 51 (> 60)
[2020-04-21] MEDS: Doxycycline 100 MG CAPSULE PO SCH ×2 (05:44→16:59)
[2020-04-21] MEDS: *HR* Enoxaparin 40 MG/0.4 ML SYRINGE SQ SCH (05:45)
[2020-04-21] MEDS: Sacubitril/Valsartan 24/26 MG 1 TABLET PO SCH ×2 (09:00→20:33)
[2020-04-21] MEDS: *HR* Ticagrelor 90 MG TABLET PO SCH ×2 (09:00→20:33)
[2020-04-21] MEDS: Metoprolol XL (24 HR) Succ 25 MG TAB.ER.24H PO SCH (09:00)
[2020-04-21] MEDS: Aspirin Enteric Coated 81 MG Tablet PO SCH (09:00)
[2020-04-21] MEDS: Furosemide 20 MG TABLET PO SCH (09:01)
[2020-04-21] MEDS: cefTRIAXone 1,000 MG in Water for inj. (sterile) 10 ML IVP SCH (09:01)
[2020-04-21] MEDS: allopurinoL 100 MG TABLET PO SCH (09:01)
[2020-04-21] MEDS: Dexamethasone 4 MG/ML VIAL IVP SCH (09:02)
[2020-04-21] MEDS: Insulin LISPRO 300 UNITS/3 ML VIAL SQ SCH ×4 (09:03→20:33)
[2020-04-21] MEDS: Insulin DETEMIR 100 UNIT/ML X5UNITS SQ SCH ×2 (09:06→20:35)
[2020-04-22] MEDS: Ipratropium 1 PUFF INHALER IH SCH ×5 (03:25→19:44)
[2020-04-22] MEDS: *HR* Enoxaparin 40 MG/0.4 ML SYRINGE SQ SCH (06:08)
[2020-04-22] MEDS: Doxycycline 100 MG CAPSULE PO SCH ×2 (06:08→16:49)
[2020-04-22 07:28] LABS: Basophils # 0.1 K/mcL (0.0-0.2); Basophils % 0.4 %; Hematocrit 36.2 % (37.5-50.1); Hemoglobin 12.1 g/dL (12.9-16.9); Immature Granulocytes % 2.7 % (0-4); Lymphocytes # 0.3 K/mcL (0.6-4.6); Lymphocytes % 2.2 %; Mean Corpuscular HGB Conc 33.4 g/dL (31.6-35.5); Mean Corpuscular Hemoglobin 32.9 pg (28.0-33.3); Mean Corpuscular Volume 98.4 fL (83.0-100.0); Mean Platelet Volume 9.6 fL (9.4-12.4); Monocytes # 0.8 K/mcL (0.0-1.3); Monocytes % 6.9 %; Neutrophils # 10.4 K/mcL (1.6-8.9); Platelet Count 278 K/mcL (140-400); Red Blood Count 3.68 M/mcL (4.19-5.50); Red Cell Distribution Width 13.2 % (11.5-14.5); Segmented Neutrophils % 87.8 %; White Blood Count 11.8 K/mcL (4.3-11.1)
[2020-04-22 07:50] LABS: Alanine Aminotransferase 17 Units/L (7-52); Albumin 3.5 g/dL (3.5-5.7); Albumin/Globulin Ratio 0.9 (1.1-2.2); Alkaline Phosphatase 51 Units/L (34-104); Aspartate Amino Transferase 24 Units/L (13-39); BUN/Creatinine Ratio 47 (6-26); Bilirubin,Total 0.7 mg/dL (0.3-1.0); Blood Urea Nitrogen 78 mg/dL (8-23); Calcium 9.7 mg/dL (8.6-10.3); Carbon Dioxide 20 mEq/L (23-29); Chloride 106 mEq/L (98-107); Globulin 3.8 g/dL (2.4-3.5); Glucose 231 mg/dL (70-105); Lactate Dehydrogenase 353 Units/L (140-271); Osmolality,Calculated 311 (280-300); Potassium 4.8 mEq/L (3.5-5.1); Sodium 135 mEq/L (136-145); Total Protein 7.3 g/dL (6.4-8.9); eGFR For African Americans 49 (> 60); eGFR For Non-African Americans 41 (> 60)
[2020-04-22] MEDS: Aspirin Enteric Coated 81 MG Tablet PO SCH (07:56)
[2020-04-22] MEDS: Sacubitril/Valsartan 24/26 MG 1 TABLET PO SCH ×3 (07:56→21:16)
[2020-04-22] MEDS: Metoprolol XL (24 HR) Succ 25 MG TAB.ER.24H PO SCH (07:56)
[2020-04-22] MEDS: allopurinoL 100 MG TABLET PO SCH (07:56)
[2020-04-22] MEDS: Furosemide 20 MG TABLET PO SCH (07:56)
[2020-04-22] MEDS: *HR* Ticagrelor 90 MG TABLET PO SCH ×3 (07:56→21:16)
[2020-04-22] MEDS: cefTRIAXone 1,000 MG in Water for inj. (sterile) 10 ML IVP SCH (07:57)
[2020-04-22] MEDS: Insulin DETEMIR 100 UNIT/ML X5UNITS SQ SCH ×2 (07:58→20:28)
[2020-04-22] MEDS: Dexamethasone 4 MG/ML VIAL IVP SCH (07:58)
[2020-04-22] MEDS: Insulin LISPRO 300 UNITS/3 ML VIAL SQ SCH ×4 (07:59→20:27)
[2020-04-22 08:18] LABS: Ferritin > 1500 ng/mL (20-250)
[2020-04-22 13:29] LABS: C-Reactive Protein 22 mg/L (Less than 10)
[2020-04-22] MEDS: Ondansetron 4 MG/2 ML VIAL IVP PRN (20:56)
[2020-04-23] MEDS: Ipratropium 1 PUFF INHALER IH SCH ×6 (00:19→19:52)
[2020-04-23 05:13] LABS: Basophils % 0.1 %; Hematocrit 45.2 % (37.5-50.1); Immature Granulocytes % 3.2 % (0-4); Lymphocytes # 0.5 K/mcL (0.6-4.6); Lymphocytes % 3.1 %; Mean Corpuscular HGB Conc 32.1 g/dL (31.6-35.5); Mean Corpuscular Hemoglobin 31.6 pg (28.0-33.3); Mean Corpuscular Volume 98.5 fL (83.0-100.0); Mean Platelet Volume 9.5 fL (9.4-12.4); Monocytes # 0.8 K/mcL (0.0-1.3); Monocytes % 4.8 %; Platelet Count 370 K/mcL (140-400); Red Blood Count 4.59 M/mcL (4.19-5.50); Red Cell Distribution Width 13.2 % (11.5-14.5); Segmented Neutrophils % 88.8 %; White Blood Count 15.8 K/mcL (4.3-11.1)
[2020-04-23 05:15] LABS: Hemoglobin 14.5 g/dL (12.9-16.9)
[2020-04-23 05:33] LABS: Albumin/Globulin Ratio 0.9 (1.1-2.2); Bilirubin,Total 0.9 mg/dL (0.3-1.0); Calcium 10.1 mg/dL (8.6-10.3); Globulin 4.6 g/dL (2.4-3.5); Total Protein 8.6 g/dL (6.4-8.9)
[2020-04-23] MEDS: Doxycycline 100 MG CAPSULE PO SCH ×2 (05:34→17:27)
[2020-04-23] MEDS: *HR* Enoxaparin 40 MG/0.4 ML SYRINGE SQ SCH (05:34)
[2020-04-23 05:35] LABS: Platelet Estimate Normal (Normal)
[2020-04-23] MEDS: allopurinoL 100 MG TABLET PO SCH (08:28)
[2020-04-23] MEDS: cefTRIAXone 1,000 MG in Water for inj. (sterile) 10 ML IVP SCH (08:28)
[2020-04-23] MEDS: Sacubitril/Valsartan 24/26 MG 1 TABLET PO SCH (08:28)
[2020-04-23] MEDS: Metoprolol XL (24 HR) Succ 25 MG TAB.ER.24H PO SCH (08:28)
[2020-04-23] MEDS: Aspirin Enteric Coated 81 MG Tablet PO SCH (08:28)
[2020-04-23] MEDS: *HR* Ticagrelor 90 MG TABLET PO SCH ×2 (08:28→20:48)
[2020-04-23] MEDS: Dexamethasone 4 MG/ML VIAL IVP SCH (08:29)
[2020-04-23] MEDS: Insulin LISPRO 300 UNITS/3 ML VIAL SQ SCH ×5 (08:31→20:49)
[2020-04-23] MEDS: Insulin DETEMIR 100 UNIT/ML X5UNITS SQ SCH ×2 (08:34→20:49)
[2020-04-24] MEDS: Ipratropium 1 PUFF INHALER IH SCH ×7 (00:03→23:29)
[2020-04-24 02:10] LABS: Basophils # 0.1 K/mcL (0.0-0.2); Basophils % 0.9 %; Hemoglobin 13.8 g/dL (12.9-16.9); Immature Granulocytes % 3.9 % (0-4); Lymphocytes # 0.4 K/mcL (0.6-4.6); Lymphocytes % 2.7 %; Mean Corpuscular HGB Conc 32.9 g/dL (31.6-35.5); Mean Corpuscular Hemoglobin 32.2 pg (28.0-33.3); Mean Corpuscular Volume 97.9 fL (83.0-100.0); Mean Platelet Volume 9.6 fL (9.4-12.4); Monocytes # 0.6 K/mcL (0.0-1.3); Monocytes % 4.6 %; Neutrophils # 11.4 K/mcL (1.6-8.9); Platelet Count 341 K/mcL (140-400); Red Blood Count 4.29 M/mcL (4.19-5.50); Red Cell Distribution Width 13.2 % (11.5-14.5); Segmented Neutrophils % 87.9 %
[2020-04-24 02:31] LABS: Alanine Aminotransferase 19 Units/L (7-52); Albumin 3.5 g/dL (3.5-5.7); Albumin/Globulin Ratio 0.8 (1.1-2.2); Alkaline Phosphatase 52 Units/L (34-104); Aspartate Amino Transferase 20 Units/L (13-39); BUN/Creatinine Ratio 50 (6-26); Bilirubin,Total 0.8 mg/dL (0.3-1.0); Blood Urea Nitrogen 113 mg/dL (8-23); C-Reactive Protein 7 mg/L (Less than 10); Calcium 9.4 mg/dL (8.6-10.3); Carbon Dioxide 18 mEq/L (23-29); Chloride 104 mEq/L (98-107); Globulin 4.2 g/dL (2.4-3.5); Glucose 108 mg/dL (70-105); Lactate Dehydrogenase 307 Units/L (140-271); Osmolality,Calculated 318 (280-300); Potassium 4.6 mEq/L (3.5-5.1); Sodium 136 mEq/L (136-145); Total Protein 7.7 g/dL (6.4-8.9); eGFR For African Americans 34 (> 60); eGFR For Non-African Americans 28 (> 60)
[2020-04-24 02:49] LABS: Ferritin > 1500 ng/mL (20-250)
[2020-04-24] MEDS: Doxycycline 100 MG CAPSULE PO SCH ×2 (05:43→16:28)
[2020-04-24] MEDS: *HR* Enoxaparin 40 MG/0.4 ML SYRINGE SQ SCH (05:43)
[2020-04-24] MEDS: Insulin LISPRO 300 UNITS/3 ML VIAL SQ SCH ×7 (08:09→20:37)
[2020-04-24] MEDS: cefTRIAXone 1,000 MG in Water for inj. (sterile) 10 ML IVP SCH (08:17)
[2020-04-24] MEDS: allopurinoL 100 MG TABLET PO SCH (08:17)
[2020-04-24] MEDS: Aspirin Enteric Coated 81 MG Tablet PO SCH (08:17)
[2020-04-24] MEDS: *HR* Ticagrelor 90 MG TABLET PO SCH ×2 (08:17→20:36)
[2020-04-24] MEDS: Metoprolol XL (24 HR) Succ 25 MG TAB.ER.24H PO SCH (08:17)
[2020-04-24] MEDS: Dexamethasone 4 MG/ML VIAL IVP SCH (08:18)
[2020-04-24] MEDS: Insulin DETEMIR 100 UNIT/ML X5UNITS SQ SCH ×3 (08:25→20:36)
[2020-04-24] MEDS ORDERED: Metoprolol XL (24 HR) Succ 25 MG TAB.ER.24H PO SCH (14:30)
[2020-04-25] MEDS: Ipratropium 1 PUFF INHALER IH SCH ×6 (03:20→23:19)
[2020-04-25 05:26] LABS: Basophils # 0.1 K/mcL (0.0-0.2); Basophils % 0.9 %; Hematocrit 39.9 % (37.5-50.1); Hemoglobin 12.9 g/dL (12.9-16.9); Immature Granulocytes % 4.6 % (0-4); Lymphocytes # 0.3 K/mcL (0.6-4.6); Lymphocytes % 2.5 %; Mean Corpuscular HGB Conc 32.3 g/dL (31.6-35.5); Mean Corpuscular Hemoglobin 31.9 pg (28.0-33.3); Mean Corpuscular Volume 98.5 fL (83.0-100.0); Mean Platelet Volume 9.8 fL (9.4-12.4); Monocytes # 0.5 K/mcL (0.0-1.3); Monocytes % 3.7 %; Neutrophils # 10.7 K/mcL (1.6-8.9); Platelet Count 296 K/mcL (140-400); Red Blood Count 4.05 M/mcL (4.19-5.50); Segmented Neutrophils % 88.3 %; White Blood Count 12.1 K/mcL (4.3-11.1)
[2020-04-25 05:40] LABS: Albumin 3.4 g/dL (3.5-5.7); Albumin/Globulin Ratio 0.9 (1.1-2.2); Bilirubin,Total 0.9 mg/dL (0.3-1.0); Calcium 9.2 mg/dL (8.6-10.3); Total Protein 7.4 g/dL (6.4-8.9)
[2020-04-25] MEDS ORDERED: *HR* Enoxaparin 30 MG/0.3 ML SYRINGE SQ SCH (06:00)
[2020-04-25] MEDS: Insulin DETEMIR 100 UNIT/ML X5UNITS SQ SCH ×2 (08:13→20:21)
[2020-04-25] MEDS: Aspirin Enteric Coated 81 MG Tablet PO SCH (08:13)
[2020-04-25] MEDS: *HR* Ticagrelor 90 MG TABLET PO SCH ×2 (08:14→20:20)
[2020-04-25] MEDS: Metoprolol XL (24 HR) Succ 25 MG TAB.ER.24H PO SCH (08:14)
[2020-04-25] MEDS: Insulin LISPRO 300 UNITS/3 ML VIAL SQ SCH ×7 (08:15→20:20)
[2020-04-25] MEDS: Dexamethasone Sodium Phos/PF 10 MG/ML VIAL IVP SCH (10:19)
[2020-04-26] MEDS: Ipratropium 1 PUFF INHALER IH SCH ×3 (04:31→11:33)
[2020-04-26] MEDS ORDERED: *HR* Enoxaparin 40 MG/0.4 ML SYRINGE SQ SCH (06:00)
[2020-04-26 08:09] VITALS: BP 114/69
[2020-04-26 09:17] LABS: Calcium 9.3 mg/dL (8.6-10.3); Potassium 5.2 mEq/L (3.5-5.1)
[2020-04-26] MEDS: Aspirin Enteric Coated 81 MG Tablet PO SCH (09:54)
[2020-04-26] MEDS: *HR* Ticagrelor 90 MG TABLET PO SCH (09:54)
[2020-04-26] MEDS: Metoprolol XL (24 HR) Succ 25 MG TAB.ER.24H PO SCH (09:55)
[2020-04-26] MEDS: Insulin LISPRO 300 UNITS/3 ML VIAL SQ SCH ×2 (09:55)
[2020-04-26] MEDS: Insulin DETEMIR 100 UNIT/ML X5UNITS SQ SCH (09:59)
[2020-04-26] MEDS: Dexamethasone Sodium Phos/PF 10 MG/ML VIAL IVP SCH (11:10)
[2020-04-26] MEDS: Ondansetron 4 MG/2 ML VIAL IVP PRN (11:16)
== END 2020-04-26 13:41 | disposition home health service (06) | DRG 177 ==
LOC: 2NENU 09:21 → EMEROOARM 09:21 → 2NENU 12:11 → SUATTDRO 15:09 → 3BNU 04-25 18:26
PROVIDERS: ADMIT Internal Medicine; ATTEND Internal Medicine

== ENCOUNTER 2020-04-30 20:53 | Inpatient (IN) ==
[2020-04-30 21:36] LABS: Basophils % 0.2 %; Hematocrit 38.1 % (37.5-50.1); Hemoglobin 12.7 g/dL (12.9-16.9); Immature Granulocytes % 2.1 % (0-4); Lymphocytes # 0.4 K/mcL (0.6-4.6); Lymphocytes % 2.6 %; Mean Corpuscular HGB Conc 33.3 g/dL (31.6-35.5); Mean Corpuscular Hemoglobin 31.7 pg (28.0-33.3); Mean Platelet Volume 11.4 fL (9.4-12.4); Monocytes # 0.7 K/mcL (0.0-1.3); Monocytes % 4.8 %; Neutrophils # 12.7 K/mcL (1.6-8.9); Platelet Count 129 K/mcL (140-400); Red Blood Count 4.01 M/mcL (4.19-5.50); Red Cell Distribution Width 12.7 % (11.5-14.5); Segmented Neutrophils % 90.3 %; White Blood Count 14.1 K/mcL (4.3-11.1)
[2020-04-30 21:45] LABS: INR 1.1; Prothrombin Time 12.5 Seconds (9.4-12.1)
[2020-04-30] MEDS ORDERED: Calcium Gluconate 1gm/50mL 1 GM/50 ML BAG IVPB ONE (21:55)
[2020-04-30] MEDS ORDERED: Albuterol 2.5 MG/3 ML NEBULIZER IH ONE (21:56)
[2020-04-30 21:58] LABS: Alanine Aminotransferase 18 Units/L (7-52); Albumin 3.4 g/dL (3.5-5.7); Albumin/Globulin Ratio 0.9 (1.1-2.2); Alkaline Phosphatase 60 Units/L (34-104); Aspartate Amino Transferase 12 Units/L (13-39); BUN/Creatinine Ratio 48 (6-26); Bilirubin,Direct 0.2 mg/dL (0.0-0.2); Bilirubin,Indirect 0.9 mg/dL (0.0-1.0); Bilirubin,Total 1.1 mg/dL (0.3-1.0); Blood Urea Nitrogen 72 mg/dL (8-23); Calcium 9.6 mg/dL (8.6-10.3); Carbon Dioxide 19 mEq/L (23-29); Chloride 97 mEq/L (98-107); Globulin 3.6 g/dL (2.4-3.5); Glucose 420 mg/dL (70-105); Osmolality,Calculated 299 (280-300); Potassium 6.1 mEq/L (3.5-5.1); Sodium 125 mEq/L (136-145); Troponin I < 0.03 ng/mL (< 0.04); eGFR For African Americans 55 (> 60); eGFR For Non-African Americans 45 (> 60)
[2020-04-30 22:22] LABS: VBG HCO3 21 mEq/L (21-27); VBG PCO2 37 mmHg (41-51); VBG PH 7.36 pH Units (7.32-7.42); VBG PO2 57 mmHg (25-50)
[2020-04-30] MEDS ORDERED: Ondansetron 4 MG/2 ML VIAL IVP ONE (22:31)
[2020-04-30] MEDS ORDERED: Insulin Human Regular 5 UNIT in 0.9 % Sodium Chloride 10 ML IV ONE (23:13)
[2020-05-01] MEDS ORDERED: Naloxone 0.4 MG/ML INJ IVP PRN (02:41)
[2020-05-01] MEDS ORDERED: Ondansetron 4 MG/2 ML VIAL IVP PRN (02:41)
[2020-05-01] MEDS ORDERED: Acetaminophen 325 MG TABLET PO PRN (02:41)
[2020-05-01] MEDS ORDERED: Dextrose Gel 15 GM/37.5 ML TUBE PO PRN ×2 (06:36)
[2020-05-01] MEDS ORDERED: *HR* Dextrose 50 % in Water (Vial) 50 ML VIAL IVP PRN (06:36)
[2020-05-01] MEDS ORDERED: D5% in Water 1,000 ML IVC PRN (06:36)
[2020-05-01 07:10] LABS: Basophils # 0.1 K/mcL (0.0-0.2); Basophils % 0.3 %; Eosinophils # 0.1 K/mcL (0.0-0.6); Eosinophils % 0.4 %; Hematocrit 38.2 % (37.5-50.1); Hemoglobin 12.8 g/dL (12.9-16.9); Immature Granulocytes % 2.1 % (0-4); Lymphocytes # 0.4 K/mcL (0.6-4.6); Lymphocytes % 2.3 %; Mean Corpuscular HGB Conc 33.5 g/dL (31.6-35.5); Mean Corpuscular Volume 95.5 fL (83.0-100.0); Mean Platelet Volume 11.5 fL (9.4-12.4); Monocytes # 0.8 K/mcL (0.0-1.3); Monocytes % 5.5 %; Neutrophils # 13.4 K/mcL (1.6-8.9); Platelet Count 104 K/mcL (140-400); Red Cell Distribution Width 12.9 % (11.5-14.5); Segmented Neutrophils % 89.4 %
[2020-05-01 07:32] LABS: Albumin 3.2 g/dL (3.5-5.7); Albumin/Globulin Ratio 0.9 (1.1-2.2); Bilirubin,Total 0.8 mg/dL (0.3-1.0); Calcium 9.2 mg/dL (8.6-10.3); Globulin 3.4 g/dL (2.4-3.5); Magnesium 2.6 mg/dL (1.6-2.6); Total Protein 6.6 g/dL (6.4-8.9)
[2020-05-01 07:33] LABS: Troponin I 0.04 ng/mL (< 0.04)
[2020-05-01 08:38] LABS: INR 1.1; Prothrombin Time 12.4 Seconds (9.4-12.1)
[2020-05-01 08:40] LABS: Activated Partial Thrombo Time 23.2 Seconds (26.0-36.0)
[2020-05-01] MEDS: SODIUM ZIRCONIUM CYCLOSILICATE 5 GM POWD.PACK PO SCH (09:52)
[2020-05-01 11:34] LABS: Bilirubin,Urine Negative (Negative); Blood,Urine Negative (Negative); Clarity,Urine Clear (Clear); Color,Urine Light-Yellow (Yellow); Glucose,Urine (UA) >=1000 mg/dL (Normal); Hyaline Casts,Urine Moderate per lpf (None Seen); Ketones,Urine Negative (Negative); Leukocyte Esterase,Urine Negative (Negative); Mucus,Urine Few per lpf (None-Few); Nitrite,Urine Negative (Negative); PH,Urine 5.5 pH Units (5.0-8.0); Protein,Urine Trace mg/dL (Neg-Trace); RBC,Urine 0-3 per hpf (0-3); Specific Gravity,Urine 1.023 (1.010-1.025); Urobilinogen,Urine Normal (Normal); WBC,Urine 0-3 per hpf (0-3)
[2020-05-01] MEDS ORDERED: Insulin LISPRO 300 UNITS/3 ML VIAL SQ SCH (12:00)
[2020-05-01] MEDS ORDERED: Sodium Bicarbonate 150 MEQ in Water for inj. (sterile) 1,000 ML IVC SCH (13:00)
[2020-05-01 14:10] LABS: Calcium 9.4 mg/dL (8.6-10.3); Potassium 5.9 mEq/L (3.5-5.1)
[2020-05-01] MEDS: Insulin LISPRO 300 UNITS/3 ML VIAL SQ SCH ×2 (17:20→20:33)
[2020-05-01] MEDS: *HR* Heparin 5,000 UNIT/ML VIAL SQ SCH (18:26)
[2020-05-01 23:37] LABS: Calcium 9.1 mg/dL (8.6-10.3); Potassium 5.2 mEq/L (3.5-5.1)
[2020-05-02] MEDS: *HR* Heparin 5,000 UNIT/ML VIAL SQ SCH ×2 (05:38→16:11)
[2020-05-02 06:51] LABS: Potassium 4.8 mEq/L (3.5-5.1)
[2020-05-02] MEDS: Insulin LISPRO 300 UNITS/3 ML VIAL SQ SCH ×4 (08:12→21:39)
[2020-05-02] MEDS: SODIUM ZIRCONIUM CYCLOSILICATE 5 GM POWD.PACK PO SCH (08:12)
[2020-05-02] MEDS: Doxycycline 100 MG CAPSULE PO SCH ×2 (10:23→21:21)
[2020-05-02] MEDS: Cefdinir 300 MG CAPSULE PO SCH ×2 (10:24→21:21)
[2020-05-02] MEDS: *HR* Ticagrelor 90 MG TABLET PO SCH (21:20)
[2020-05-03 02:30] LABS: Basophils % 0.2 %; Eosinophils % 0.4 %; Hematocrit 33.1 % (37.5-50.1); Immature Granulocytes % 1.9 % (0-4); Lymphocytes # 0.4 K/mcL (0.6-4.6); Lymphocytes % 4.1 %; Mean Corpuscular HGB Conc 33.2 g/dL (31.6-35.5); Mean Corpuscular Hemoglobin 32.2 pg (28.0-33.3); Mean Corpuscular Volume 96.8 fL (83.0-100.0); Mean Platelet Volume 11.8 fL (9.4-12.4); Monocytes # 0.6 K/mcL (0.0-1.3); Monocytes % 6.2 %; Neutrophils # 8.2 K/mcL (1.6-8.9); Red Blood Count 3.42 M/mcL (4.19-5.50); Red Cell Distribution Width 12.8 % (11.5-14.5); Segmented Neutrophils % 87.2 %; White Blood Count 9.4 K/mcL (4.3-11.1)
[2020-05-03 02:31] LABS: Platelet Count 90 K/mcL (140-400)
[2020-05-03 02:52] LABS: Calcium 8.4 mg/dL (8.6-10.3); Magnesium 2.2 mg/dL (1.6-2.6); Potassium 4.7 mEq/L (3.5-5.1)
[2020-05-03 05:59] LABS: Estimated Average Glucose 275 mg/dl; Hemoglobin A1C 11.2 %
[2020-05-03] MEDS: *HR* Heparin 5,000 UNIT/ML VIAL SQ SCH (06:07)
[2020-05-03] MEDS: Doxycycline 100 MG CAPSULE PO SCH (08:14)
[2020-05-03] MEDS: SODIUM ZIRCONIUM CYCLOSILICATE 5 GM POWD.PACK PO SCH (08:14)
[2020-05-03] MEDS: Cefdinir 300 MG CAPSULE PO SCH (08:14)
[2020-05-03] MEDS: Insulin LISPRO 300 UNITS/3 ML VIAL SQ SCH ×2 (08:15→12:08)
[2020-05-03] MEDS: *HR* Ticagrelor 90 MG TABLET PO SCH (08:15)
[2020-05-03] MEDS ORDERED: allopurinoL 100 MG TABLET PO SCH (09:00)
[2020-05-03] MEDS ORDERED: Insulin DETEMIR 100 UNIT/ML X5UNITS SUBQ SCH (09:00)
[2020-05-03] MEDS ORDERED: Sennosides/Docusate Sodium TABLET PO ONE (12:42)
[2020-05-03] MEDS ORDERED: polyethylene glycoL 3350 17 GM POWD.PACK PO ONE (12:43)
[2020-05-03 15:06] VITALS: BP 122/70
[2020-05-03] MEDS ORDERED: Aspirin Enteric Coated 81 MG Tablet PO SCH (18:00)
[2020-05-03] MEDS ORDERED: Metoprolol XL (24 HR) Succ 25 MG TAB.ER.24H PO SCH (18:00)
== END 2020-05-03 17:15 | disposition home health service (06) | DRG 177 ==
LOC: CDU 20:53 → EMEROOARM 20:53 → SUATTDRO 05-01 02:25 → CDU 05-01 03:34
PROVIDERS: ADMIT Family Medicine; ATTEND Pharmacist

== ENCOUNTER 2020-05-13 01:30 | Inpatient (IN) ==
[2020-05-13 02:04] LABS: Basophils % 0.4 %; Eosinophils # 0.1 K/mcL (0.0-0.6); Eosinophils % 0.9 %; Hematocrit 27.2 % (37.5-50.1); Hemoglobin 8.5 g/dL (12.9-16.9); Immature Granulocytes % 1.3 % (0-4); Lymphocytes # 0.4 K/mcL (0.6-4.6); Lymphocytes % 7.8 %; Mean Corpuscular HGB Conc 31.3 g/dL (31.6-35.5); Mean Corpuscular Hemoglobin 31.7 pg (28.0-33.3); Mean Corpuscular Volume 101.5 fL (83.0-100.0); Mean Platelet Volume 9.2 fL (9.4-12.4); Monocytes # 0.3 K/mcL (0.0-1.3); Monocytes % 5.8 %; Neutrophils # 4.5 K/mcL (1.6-8.9); Platelet Count 174 K/mcL (140-400); Red Blood Count 2.68 M/mcL (4.19-5.50); Red Cell Distribution Width 13.6 % (11.5-14.5); Segmented Neutrophils % 83.8 %; White Blood Count 5.4 K/mcL (4.3-11.1)
[2020-05-13 02:24] LABS: BUN/Creatinine Ratio 16 (6-26); Blood Urea Nitrogen 17 mg/dL (8-23); Calcium 8.5 mg/dL (8.6-10.3); Carbon Dioxide 27 mEq/L (23-29); Chloride 99 mEq/L (98-107); Creatine Kinase 22 Units/L (30-223); Glucose 244 mg/dL (70-105); Magnesium 1.7 mg/dL (1.6-2.6); Osmolality,Calculated 286 (280-300); Potassium 4.3 mEq/L (3.5-5.1); Sodium 133 mEq/L (136-145); eGFR For African Americans > 60 (> 60); eGFR For Non-African Americans > 60 (> 60)
[2020-05-13] MEDS ORDERED: Naloxone 0.4 MG/ML INJ IVP PRN (04:31)
[2020-05-13] MEDS ORDERED: Ondansetron ODT 4 MG TAB.RAPDIS SL PRN (04:31)
[2020-05-13] MEDS ORDERED: Dextrose Gel 15 GM/37.5 ML TUBE PO PRN ×2 (04:33)
[2020-05-13] MEDS ORDERED: D5% in Water 1,000 ML IVC PRN (04:33)
[2020-05-13] MEDS ORDERED: *HR* Dextrose 50 % in Water (Vial) 50 ML VIAL IVP PRN (04:33)
[2020-05-13] MEDS: Insulin LISPRO 300 UNITS/3 ML VIAL SUBQ SCH ×6 (05:29→22:49)
[2020-05-13 05:45] LABS: INR 1.2; Prothrombin Time 13.9 Seconds (9.4-12.1)
[2020-05-13 06:15] LABS: Thyroid Stimulating Hormone 2.221 mcIU/mL (0.340-5.600)
[2020-05-13 06:26] LABS: Folate 14.6 ng/mL (3.0-16.0)
[2020-05-13 09:26] LABS: Basophils % 0.4 %; Eosinophils # 0.1 K/mcL (0.0-0.6); Eosinophils % 0.9 %; Hematocrit 26.8 % (37.5-50.1); Hemoglobin 8.7 g/dL (12.9-16.9); Immature Granulocytes % 1.5 % (0-4); Lymphocytes # 0.5 K/mcL (0.6-4.6); Lymphocytes % 9.7 %; Mean Corpuscular HGB Conc 32.5 g/dL (31.6-35.5); Mean Corpuscular Volume 101.5 fL (83.0-100.0); Mean Platelet Volume 9.6 fL (9.4-12.4); Monocytes # 0.3 K/mcL (0.0-1.3); Monocytes % 6.2 %; Neutrophils # 4.5 K/mcL (1.6-8.9); Platelet Count 183 K/mcL (140-400); Red Blood Count 2.64 M/mcL (4.19-5.50); Red Cell Distribution Width 13.8 % (11.5-14.5); Segmented Neutrophils % 81.3 %; White Blood Count 5.5 K/mcL (4.3-11.1)
[2020-05-13] MEDS: Insulin DETEMIR 100 UNIT/ML X5UNITS SUBQ SCH (12:54)
[2020-05-13 13:20] LABS: Bilirubin,Urine Negative (Negative); Blood,Urine Negative (Negative); Clarity,Urine Clear (Clear); Color,Urine Light-Yellow (Yellow); Glucose,Urine (UA) 500 mg/dL (Normal); Ketones,Urine Negative (Negative); Leukocyte Esterase,Urine Negative (Negative); Mucus,Urine Few per lpf (None-Few); Nitrite,Urine Negative (Negative); Protein,Urine 30 mg/dL (Neg-Trace); RBC,Urine 0-3 per hpf (0-3); Specific Gravity,Urine 1.018 (1.010-1.025); Squamous Epithelial Cell,Urine Few per hpf (None-Few); Urobilinogen,Urine Normal (Normal); WBC,Urine 0-3 per hpf (0-3)
[2020-05-13] MEDS: Metoprolol XL (24 HR) Succ 25 MG TAB.ER.24H PO SCH (16:10)
[2020-05-13] MEDS: Aspirin Enteric Coated 81 MG Tablet PO SCH (16:10)
[2020-05-13] MEDS: Acetaminophen 325 MG TABLET PO PRN (16:25)
[2020-05-14 03:30] LABS: Hematocrit 27.2 % (37.5-50.1); Hemoglobin 8.6 g/dL (12.9-16.9); Mean Corpuscular HGB Conc 31.6 g/dL (31.6-35.5); Mean Corpuscular Hemoglobin 32.2 pg (28.0-33.3); Mean Corpuscular Volume 101.9 fL (83.0-100.0); Mean Platelet Volume 9.1 fL (9.4-12.4); Platelet Count 198 K/mcL (140-400); Red Blood Count 2.67 M/mcL (4.19-5.50); Red Cell Distribution Width 13.8 % (11.5-14.5); White Blood Count 5.8 K/mcL (4.3-11.1)
[2020-05-14 03:45] LABS: Alanine Aminotransferase 14 Units/L (7-52); Albumin 2.9 g/dL (3.5-5.7); Albumin/Globulin Ratio 0.9 (1.1-2.2); Alkaline Phosphatase 80 Units/L (34-104); Aspartate Amino Transferase 15 Units/L (13-39); BUN/Creatinine Ratio 15 (6-26); Bilirubin,Total 0.7 mg/dL (0.3-1.0); Blood Urea Nitrogen 14 mg/dL (8-23); Calcium 8.5 mg/dL (8.6-10.3); Carbon Dioxide 28 mEq/L (23-29); Chloride 100 mEq/L (98-107); Globulin 3.4 g/dL (2.4-3.5); Glucose 66 mg/dL (70-105); Magnesium 1.7 mg/dL (1.6-2.6); Osmolality,Calculated 279 (280-300); Phosphorous 3.4 mg/dL (2.7-4.5); Sodium 135 mEq/L (136-145); Total Protein 6.3 g/dL (6.4-8.9); eGFR For African Americans > 60 (> 60); eGFR For Non-African Americans > 60 (> 60)
[2020-05-14] MEDS: Insulin LISPRO 300 UNITS/3 ML VIAL SUBQ SCH ×3 (07:46→16:43)
[2020-05-14] MEDS: Insulin DETEMIR 100 UNIT/ML X5UNITS SUBQ SCH (12:20)
[2020-05-14] MEDS: allopurinoL 100 MG TABLET PO SCH (12:20)
[2020-05-14] MEDS ORDERED: NON-FORMULARY MEDICATION 1 EACH EACH (Pantoprazole Sodium [Protonix] 20 MG) PO SCH (13:45)
[2020-05-14] MEDS: Metoprolol XL (24 HR) Succ 25 MG TAB.ER.24H PO SCH (16:12)
[2020-05-14] MEDS: Pantoprazole 40 MG in 0.9 % Sodium Chloride Mini Bag 100 ML IVC SCH ×2 (16:12→21:32)
[2020-05-14] MEDS: Aspirin Enteric Coated 81 MG Tablet PO SCH (16:45)
[2020-05-14] MEDS: Sucralfate 1 GM TABLET PO SCH (21:31)
[2020-05-14] MEDS: valACYclovir 500 MG TABLET PO SCH (21:32)
[2020-05-15] MEDS: Acetaminophen 325 MG TABLET PO PRN ×3 (02:44→19:41)
[2020-05-15] MEDS: Pantoprazole 40 MG in 0.9 % Sodium Chloride Mini Bag 100 ML IVC SCH ×3 (02:45→14:54)
[2020-05-15 03:17] LABS: Basophils % 0.4 %; Eosinophils # 0.1 K/mcL (0.0-0.6); Hematocrit 23.6 % (37.5-50.1); Hemoglobin 7.6 g/dL (12.9-16.9); Immature Granulocytes % 1.4 % (0-4); Lymphocytes # 0.5 K/mcL (0.6-4.6); Lymphocytes % 9.2 %; Mean Corpuscular HGB Conc 32.2 g/dL (31.6-35.5); Mean Corpuscular Hemoglobin 32.2 pg (28.0-33.3); Mean Platelet Volume 9.1 fL (9.4-12.4); Monocytes # 0.4 K/mcL (0.0-1.3); Monocytes % 7.4 %; Neutrophils # 4.1 K/mcL (1.6-8.9); Platelet Count 213 K/mcL (140-400); Red Blood Count 2.36 M/mcL (4.19-5.50); Red Cell Distribution Width 13.9 % (11.5-14.5); Segmented Neutrophils % 80.6 %; White Blood Count 5.1 K/mcL (4.3-11.1)
[2020-05-15 03:36] LABS: BUN/Creatinine Ratio 16 (6-26); Blood Urea Nitrogen 15 mg/dL (8-23); Calcium 8.2 mg/dL (8.6-10.3); Carbon Dioxide 26 mEq/L (23-29); Chloride 103 mEq/L (98-107); Glucose 117 mg/dL (70-105); Magnesium 1.7 mg/dL (1.6-2.6); Osmolality,Calculated 280 (280-300); Potassium 4.2 mEq/L (3.5-5.1); Sodium 134 mEq/L (136-145); eGFR For African Americans > 60 (> 60); eGFR For Non-African Americans > 60 (> 60)
[2020-05-15] MEDS: Sucralfate 1 GM TABLET PO SCH ×4 (05:51→21:04)
[2020-05-15] MEDS: Insulin LISPRO 300 UNITS/3 ML VIAL SUBQ SCH ×3 (08:55→16:30)
[2020-05-15] MEDS: allopurinoL 100 MG TABLET PO SCH (08:55)
[2020-05-15] MEDS: valACYclovir 500 MG TABLET PO SCH ×2 (08:56→21:04)
[2020-05-15] MEDS: Insulin DETEMIR 100 UNIT/ML X5UNITS SUBQ SCH (09:47)
[2020-05-15] MEDS: Pantoprazole 40 MG VIAL IVP SCH (17:47)
[2020-05-15] MEDS: Metoprolol XL (24 HR) Succ 25 MG TAB.ER.24H PO SCH (17:48)
[2020-05-15] MEDS: Aspirin Enteric Coated 81 MG Tablet PO SCH (17:48)
[2020-05-16] MEDS: Sucralfate 1 GM TABLET PO SCH ×4 (05:41→20:35)
[2020-05-16] MEDS: Pantoprazole 40 MG VIAL IVP SCH ×2 (05:41→17:37)
[2020-05-16 06:37] LABS: Basophils % 0.5 %; Eosinophils % 0.8 %; Hematocrit 23.1 % (37.5-50.1); Hemoglobin 7.3 g/dL (12.9-16.9); Immature Granulocytes % 1.3 % (0-4); Lymphocytes # 0.5 K/mcL (0.6-4.6); Lymphocytes % 13.6 %; Mean Corpuscular HGB Conc 31.6 g/dL (31.6-35.5); Mean Corpuscular Volume 101.3 fL (83.0-100.0); Monocytes # 0.3 K/mcL (0.0-1.3); Monocytes % 8.5 %; Neutrophils # 2.8 K/mcL (1.6-8.9); Platelet Count 244 K/mcL (140-400); Red Blood Count 2.28 M/mcL (4.19-5.50); Red Cell Distribution Width 13.9 % (11.5-14.5); Segmented Neutrophils % 75.3 %; White Blood Count 3.8 K/mcL (4.3-11.1)
[2020-05-16 07:01] LABS: BUN/Creatinine Ratio 12 (6-26); Blood Urea Nitrogen 12 mg/dL (8-23); Calcium 8.5 mg/dL (8.6-10.3); Carbon Dioxide 25 mEq/L (23-29); Chloride 104 mEq/L (98-107); Glucose 90 mg/dL (70-105); Magnesium 1.7 mg/dL (1.6-2.6); Osmolality,Calculated 279 (280-300); Potassium 4.2 mEq/L (3.5-5.1); Sodium 135 mEq/L (136-145); eGFR For African Americans > 60 (> 60); eGFR For Non-African Americans > 60 (> 60)
[2020-05-16] MEDS: allopurinoL 100 MG TABLET PO SCH (07:37)
[2020-05-16] MEDS: valACYclovir 500 MG TABLET PO SCH ×2 (07:37→20:35)
[2020-05-16] MEDS: Insulin LISPRO 300 UNITS/3 ML VIAL SUBQ SCH ×3 (07:51→16:27)
[2020-05-16] MEDS: Insulin DETEMIR 100 UNIT/ML X5UNITS SUBQ SCH (08:35)
[2020-05-16 13:00] LABS: Hematocrit 26.7 % (37.5-50.1); Hemoglobin 8.3 g/dL (12.9-16.9)
[2020-05-16] MEDS: Metoprolol XL (24 HR) Succ 25 MG TAB.ER.24H PO SCH (17:37)
[2020-05-16] MEDS: Aspirin Enteric Coated 81 MG Tablet PO SCH (17:37)
[2020-05-17] MEDS: Pantoprazole 40 MG VIAL IVP SCH (05:53)
[2020-05-17] MEDS: Acetaminophen 325 MG TABLET PO PRN (05:59)
[2020-05-17 06:03] LABS: Hematocrit 24.1 % (37.5-50.1); Hemoglobin 7.5 g/dL (12.9-16.9); Mean Corpuscular HGB Conc 31.1 g/dL (31.6-35.5); Mean Corpuscular Hemoglobin 31.4 pg (28.0-33.3); Mean Corpuscular Volume 100.8 fL (83.0-100.0); Platelet Count 270 K/mcL (140-400); Red Blood Count 2.39 M/mcL (4.19-5.50); Red Cell Distribution Width 13.8 % (11.5-14.5); White Blood Count 4.3 K/mcL (4.3-11.1)
[2020-05-17 06:23] LABS: BUN/Creatinine Ratio 13 (6-26); Blood Urea Nitrogen 13 mg/dL (8-23); Calcium 8.4 mg/dL (8.6-10.3); Carbon Dioxide 24 mEq/L (23-29); Chloride 104 mEq/L (98-107); Glucose 123 mg/dL (70-105); Osmolality,Calculated 281 (280-300); Potassium 3.8 mEq/L (3.5-5.1); Sodium 135 mEq/L (136-145); eGFR For African Americans > 60 (> 60); eGFR For Non-African Americans > 60 (> 60)
[2020-05-17] MEDS: valACYclovir 500 MG TABLET PO SCH (08:21)
[2020-05-17] MEDS: allopurinoL 100 MG TABLET PO SCH (08:21)
[2020-05-17] MEDS: Sucralfate 1 GM TABLET PO SCH ×2 (08:21→11:12)
[2020-05-17] MEDS: Insulin LISPRO 300 UNITS/3 ML VIAL SUBQ SCH ×2 (08:23→11:16)
[2020-05-17] MEDS: Insulin DETEMIR 100 UNIT/ML X5UNITS SUBQ SCH (08:28)
[2020-05-17 11:34] VITALS: BP 113/64
[2020-05-17 12:20] LABS: Hemoglobin 7.9 g/dL (12.9-16.9)
[2020-05-17] MEDS ORDERED: FLU Vac QV 20-21 (6Month+)/PF 0.5 ML SYRINGE IM ONE (14:25)
== END 2020-05-17 16:00 | disposition home health service (06) | DRG 378 ==
LOC: EMEROOARM 01:30 → 2NENU 01:30 → SUATTDRO 03:33 → 2NENU 04:07 → 3BNU 10:34 → SUATTDRO 05-15 15:37
PROVIDERS: ADMIT Internal Medicine; ATTEND Student in an Organized Health Care Education/Training Program
PROC: ENDOEBX (2020-05-14 17:30)

== ENCOUNTER 2021-06-25 10:39 | Inpatient (IN) ==
[2021-06-25] MEDS ORDERED: *HR* HYDROmorphone (PF) 1 MG/ML SYRINGE IVP ONE ×3 (11:10→12:49)
[2021-06-25 11:20] LABS: Basophils # 0.1 K/mcL (0.0-0.2); Basophils % 0.6 %; Eosinophils # 0.1 K/mcL (0.0-0.6); Eosinophils % 1.1 %; Hematocrit 38.6 % (37.5-50.1); Hemoglobin 12.6 g/dL (12.9-16.9); Immature Granulocytes % 1.1 % (0-4); Lymphocytes % 11.6 %; Mean Corpuscular HGB Conc 32.6 g/dL (31.6-35.5); Mean Corpuscular Hemoglobin 32.5 pg (28.0-33.3); Mean Corpuscular Volume 99.5 fL (83.0-100.0); Mean Platelet Volume 10.5 fL (9.4-12.4); Monocytes # 0.5 K/mcL (0.0-1.3); Monocytes % 5.4 %; Neutrophils # 6.7 K/mcL (1.6-8.9); Platelet Count 147 K/mcL (140-400); Red Blood Count 3.88 M/mcL (4.19-5.50); Red Cell Distribution Width 13.3 % (11.5-14.5); Segmented Neutrophils % 80.2 %; White Blood Count 8.4 K/mcL (4.3-11.1)
[2021-06-25 11:27] LABS: INR 1.1; Prothrombin Time 12.3 Seconds (9.4-12.1)
[2021-06-25] MEDS ORDERED: Ondansetron 4 MG/2 ML VIAL ONE (11:28)
[2021-06-25 11:30] LABS: Activated Partial Thrombo Time 28.1 Seconds (26.0-36.0)
[2021-06-25 11:45] LABS: BUN/Creatinine Ratio 19 (6-26); Blood Urea Nitrogen 25 mg/dL (8-23); Calcium 9.4 mg/dL (8.6-10.3); Carbon Dioxide 22 mEq/L (23-29); Chloride 106 mEq/L (98-107); Glucose 265 mg/dL (70-105); Osmolality,Calculated 302 (280-300); Potassium 4.5 mEq/L (3.5-5.1); Sodium 139 mEq/L (136-145); eGFR For African Americans > 60 (> 60); eGFR For Non-African Americans 52 (> 60)
[2021-06-25] MEDS ORDERED: Ondansetron 4 MG/2 ML VIAL IVP ONE ×3 (12:48→13:00)
[2021-06-25] MEDS ORDERED: MOM Conc 10 ML UD.LIQ PO PRN (14:46)
[2021-06-25] MEDS ORDERED: Mag Hydrox/Al Hydrox/Simeth 30 ML UDC PO PRN (14:46)
[2021-06-25] MEDS ORDERED: Melatonin 3 MG TABLET PO PRN (14:46)
[2021-06-25] MEDS ORDERED: Naloxone 0.4 MG/ML INJ IVP PRN (14:46)
[2021-06-25] MEDS ORDERED: Perflutren Lipid Microsphere 1.3 ML in 0.9 % Sodium Chloride 8.7 ML IVP PRN (14:49)
[2021-06-25] MEDS ORDERED: D5% in Water 1,000 ML IVC PRN (14:51)
[2021-06-25] MEDS ORDERED: *HR* Dextrose 50 % in Water (Syg) 50 ML SYRINGE IVP PRN (14:51)
[2021-06-25] MEDS ORDERED: Dextrose Gel 15 GM/37.5 ML TUBE PO PRN ×2 (14:51)
[2021-06-25] MEDS ORDERED: Prochlorperazine 10 MG/2 ML VIAL IVP PRN (15:24)
[2021-06-25 16:51] LABS: Estimated Average Glucose 206 mg/dl; Hemoglobin A1C 8.8 %
[2021-06-25] MEDS: 0.9 % Sodium Chloride 1,000 ML IVC SCH (17:09)
[2021-06-25] MEDS: Insulin LISPRO 300 UNITS/3 ML VIAL SUBQ SCH ×2 (18:14→20:19)
[2021-06-25] MEDS: *HR* OxyCODONE Immed Rel 5 MG TABLET PO PRN (20:19)
[2021-06-26] MEDS: *HR* OxyCODONE Immed Rel 5 MG TABLET PO PRN ×5 (03:39→22:12)
[2021-06-26 06:00] LABS: Hematocrit 30.3 % (37.5-50.1); Mean Corpuscular HGB Conc 33.3 g/dL (31.6-35.5); Mean Corpuscular Hemoglobin 33.6 pg (28.0-33.3); Mean Corpuscular Volume 100.7 fL (83.0-100.0); Mean Platelet Volume 10.7 fL (9.4-12.4); Platelet Count 161 K/mcL (140-400); Red Blood Count 3.01 M/mcL (4.19-5.50); Red Cell Distribution Width 13.7 % (11.5-14.5)
[2021-06-26 06:04] LABS: Hemoglobin 10.1 g/dL (12.9-16.9); White Blood Count 14.4 K/mcL (4.3-11.1)
[2021-06-26 06:13] LABS: Chol/HDL Ratio 4.9 (0-4.9)
[2021-06-26 06:14] LABS: Calcium 8.6 mg/dL (8.6-10.3); Potassium 5.5 mEq/L (3.5-5.1)
[2021-06-26] MEDS ORDERED: *HR* Dextrose 50 % in Water (Syg) 50 ML SYRINGE IVP ONE (08:05)
[2021-06-26] MEDS ORDERED: Insulin Human Regular 10 UNIT in 0.9 % Sodium Chloride 10 ML IV ONE (08:06)
[2021-06-26] MEDS: Insulin LISPRO 300 UNITS/3 ML VIAL SUBQ SCH ×4 (09:07→23:12)
[2021-06-26] MEDS: 0.9 % Sodium Chloride 1,000 ML IVC SCH ×2 (09:18→19:41)
[2021-06-26] MEDS ORDERED: *HR* Enoxaparin 40 MG/0.4 ML SYRINGE SQ ONE (12:30)
[2021-06-26] MEDS ORDERED: 0.9 % Sodium Chloride 1,000 ML IVC SCH (18:45)
[2021-06-26 19:18] LABS: Calcium 8.4 mg/dL (8.6-10.3)
[2021-06-26] MEDS: Metoprolol XL (24 HR) Succ 25 MG TAB.ER.24H PO SCH (22:11)
[2021-06-26] MEDS: Sacubitril/Valsartan 24/26 MG 1 TABLET PO SCH (23:10)
[2021-06-26] MEDS: Piperacillin/Tazobactam 3.375 GM in 0.9 % Sodium Chloride Mini Bag 100 ML IVPB SCH (23:12)
[2021-06-27] MEDS: Piperacillin/Tazobactam 3.375 GM in 0.9 % Sodium Chloride Mini Bag 100 ML IVPB SCH ×2 (08:46→17:35)
[2021-06-27 09:11] LABS: Basophils # 0.1 K/mcL (0.0-0.2); Basophils % 0.4 %; Eosinophils % 0.2 %; Hematocrit 25.6 % (37.5-50.1); Hemoglobin 8.4 g/dL (12.9-16.9); Lymphocytes # 0.8 K/mcL (0.6-4.6); Lymphocytes % 5.4 %; Mean Corpuscular HGB Conc 32.8 g/dL (31.6-35.5); Mean Corpuscular Hemoglobin 33.6 pg (28.0-33.3); Mean Corpuscular Volume 102.4 fL (83.0-100.0); Mean Platelet Volume 10.8 fL (9.4-12.4); Monocytes # 1.9 K/mcL (0.0-1.3); Monocytes % 13.1 %; Neutrophils # 11.2 K/mcL (1.6-8.9); Platelet Count 126 K/mcL (140-400); Segmented Neutrophils % 78.9 %; White Blood Count 14.2 K/mcL (4.3-11.1)
[2021-06-27 09:31] LABS: Calcium 8.6 mg/dL (8.6-10.3); Magnesium 2.2 mg/dL (1.6-2.6); Potassium 5.5 mEq/L (3.5-5.1)
[2021-06-27] MEDS ORDERED: Insulin Human Regular 10 UNIT in 0.9 % Sodium Chloride 10 ML IV ONE (10:06)
[2021-06-27] MEDS ORDERED: *HR* Dextrose 50 % in Water (Syg) 50 ML SYRINGE IVP ONE (10:07)
[2021-06-27] MEDS: Insulin LISPRO 300 UNITS/3 ML VIAL SUBQ SCH ×4 (11:30→20:05)
[2021-06-27] MEDS: Multivit/Ca/Min/Fe/FA 1 TAB TABLET PO SCH (11:30)
[2021-06-27] MEDS: allopurinoL 100 MG TABLET PO SCH (11:31)
[2021-06-27] MEDS: Sacubitril/Valsartan 24/26 MG 1 TABLET PO SCH ×2 (11:31→20:04)
[2021-06-27] MEDS ORDERED: *HR* FentaNYL (PF) 100 MCG/2 ML VIAL ONE (12:11)
[2021-06-27] MEDS ORDERED: *HR* Propofol 200 MG/20 ML VIAL IVP ONE (12:11)
[2021-06-27] MEDS ORDERED: Lidocaine HCL 4 ML Topical Solution (Laryng-O-Jet Kit Sterile Pak) TP ONE (12:13)
[2021-06-27] MEDS ORDERED: Lidocaine -MPF 2% 5 ML VIAL ONE (12:13)
[2021-06-27] MEDS ORDERED: *HR* Succinylcholine 200 MG/10 ML VIAL IVP ONE (12:13)
[2021-06-27] MEDS ORDERED: Heparin 1,000 UNITS/500 mL 500 ML ONE (12:14)
[2021-06-27] MEDS ORDERED: CeFAZolin Syr 2,000MG/20 ML 2,000 MG/20 ML SYRINGE IVPB ONE (12:59)
[2021-06-27] MEDS ORDERED: Ondansetron 4 MG/2 ML VIAL IVP PRN (13:03)
[2021-06-27] MEDS ORDERED: *HR* HYDROmorphone PF 0.5 MG/0.5 ML SYRINGE IVP PRN (13:03)
[2021-06-27] MEDS ORDERED: Insulin Regular, Human 100 UNIT/ML ONE (13:16)
[2021-06-27] MEDS ORDERED: *HR* Vasopressin 20 UNIT/ML VIAL ONE (13:50)
[2021-06-27] MEDS ORDERED: Tranexamic Acid 1,000 MG/10 ML VIAL ONE (13:57)
[2021-06-27] MEDS ORDERED: Acetaminophen IV 1,000 MG/100 ML BAG IVPB ONE (13:57)
[2021-06-27] MEDS ORDERED: Ondansetron 4 MG/2 ML VIAL ONE (13:57)
[2021-06-27] MEDS ORDERED: *HR* Rocuronium Bromide 50 MG/5 ML VIAL ONE (13:57)
[2021-06-27] MEDS ORDERED: *HR* Midazolam HCl 2 MG/2 ML VIAL ONE (13:57)
[2021-06-27] MEDS ORDERED: Albumin Human 5% 25.0 GM/500 ML IV.SOLN ONE (14:09)
[2021-06-27] MEDS ORDERED: Ketamine HCL *QUVA* 50mg (1mL) SYRINGE ONE (14:35)
[2021-06-27 17:51] LABS: Calcium 8.8 mg/dL (8.6-10.3); Potassium 5.3 mEq/L (3.5-5.1)
[2021-06-27] MEDS: Metoprolol XL (24 HR) Succ 25 MG TAB.ER.24H PO SCH (20:04)
[2021-06-28] MEDS: CeFAZolin 2,000 MG/120 ML BAG IVPB SCH ×2 (00:12→06:02)
[2021-06-28] MEDS: Piperacillin/Tazobactam 3.375 GM in 0.9 % Sodium Chloride Mini Bag 100 ML IVPB SCH ×3 (02:04→15:15)
[2021-06-28 05:09] LABS: Basophils % 0.3 %; Eosinophils % 0.2 %; Hematocrit 26.8 % (37.5-50.1); Hemoglobin 8.2 g/dL (12.9-16.9); Immature Granulocytes % 0.9 % (0-4); Lymphocytes # 0.6 K/mcL (0.6-4.6); Lymphocytes % 4.4 %; Mean Corpuscular HGB Conc 30.6 g/dL (31.6-35.5); Mean Corpuscular Hemoglobin 32.2 pg (28.0-33.3); Mean Corpuscular Volume 105.1 fL (83.0-100.0); Mean Platelet Volume 10.3 fL (9.4-12.4); Monocytes # 1.3 K/mcL (0.0-1.3); Monocytes % 9.6 %; Neutrophils # 11.2 K/mcL (1.6-8.9); Platelet Count 110 K/mcL (140-400); Red Blood Count 2.55 M/mcL (4.19-5.50); Red Cell Distribution Width 14.1 % (11.5-14.5); Segmented Neutrophils % 84.6 %; White Blood Count 13.2 K/mcL (4.3-11.1)
[2021-06-28 05:31] LABS: Calcium 8.6 mg/dL (8.6-10.3); Magnesium 2.3 mg/dL (1.6-2.6); Potassium 5.1 mEq/L (3.5-5.1)
[2021-06-28] MEDS: 0.9 % Sodium Chloride 1,000 ML IVC SCH (06:02)
[2021-06-28] MEDS ORDERED: Sodium Bicarbonate 75 MEQ in 0.45 % Sodium Chloride 1,000 ML IVC SCH (07:51)
[2021-06-28] MEDS: allopurinoL 100 MG TABLET PO SCH (08:42)
[2021-06-28] MEDS: Sacubitril/Valsartan 24/26 MG 1 TABLET PO SCH ×2 (08:42→19:10)
[2021-06-28] MEDS: Multivit/Ca/Min/Fe/FA 1 TAB TABLET PO SCH (08:42)
[2021-06-28] MEDS: Insulin LISPRO 300 UNITS/3 ML VIAL SUBQ SCH ×3 (08:53→16:31)
[2021-06-28] MEDS ORDERED: Insulin LISPRO 300 UNITS/3 ML VIAL SUBQ SCH (21:00)
[2021-06-28] MEDS: Metoprolol XL (24 HR) Succ 25 MG TAB.ER.24H PO SCH (21:49)
[2021-06-28] MEDS: Lactobacillus 1 EACH CAP.SPRINK PO SCH (21:49)
[2021-06-29] MEDS: Piperacillin/Tazobactam 3.375 GM in 0.9 % Sodium Chloride Mini Bag 100 ML IVPB SCH ×3 (00:48→16:54)
[2021-06-29 04:24] LABS: Basophils % 0.4 %; Eosinophils # 0.1 K/mcL (0.0-0.6); Eosinophils % 0.8 %; Lymphocytes # 0.7 K/mcL (0.6-4.6); Lymphocytes % 6.1 %; Mean Corpuscular HGB Conc 30.8 g/dL (31.6-35.5); Mean Corpuscular Hemoglobin 32.1 pg (28.0-33.3); Mean Corpuscular Volume 104.4 fL (83.0-100.0); Mean Platelet Volume 10.4 fL (9.4-12.4); Monocytes # 1.1 K/mcL (0.0-1.3); Monocytes % 9.2 %; Neutrophils # 9.4 K/mcL (1.6-8.9); Platelet Count 125 K/mcL (140-400); Red Blood Count 2.49 M/mcL (4.19-5.50); Red Cell Distribution Width 14.1 % (11.5-14.5); Segmented Neutrophils % 82.5 %; White Blood Count 11.4 K/mcL (4.3-11.1)
[2021-06-29 04:39] LABS: BUN/Creatinine Ratio 29 (6-26); Blood Urea Nitrogen 39 mg/dL (8-23); Calcium 8.7 mg/dL (8.6-10.3); Carbon Dioxide 23 mEq/L (23-29); Chloride 106 mEq/L (98-107); Glucose 218 mg/dL (70-105); Magnesium 2.3 mg/dL (1.6-2.6); Osmolality,Calculated 302 (280-300); Potassium 4.7 mEq/L (3.5-5.1); Sodium 138 mEq/L (136-145); eGFR For African Americans > 60 (> 60); eGFR For Non-African Americans 52 (> 60)
[2021-06-29] MEDS: Multivit/Ca/Min/Fe/FA 1 TAB TABLET PO SCH (08:48)
[2021-06-29] MEDS: Lactobacillus 1 EACH CAP.SPRINK PO SCH ×2 (08:48→21:15)
[2021-06-29] MEDS: *HR* Enoxaparin 40 MG/0.4 ML SYRINGE SQ SCH (08:48)
[2021-06-29] MEDS: allopurinoL 100 MG TABLET PO SCH (08:49)
[2021-06-29] MEDS: Insulin LISPRO 300 UNITS/3 ML VIAL SUBQ SCH ×3 (08:51→18:33)
[2021-06-29] MEDS: *HR* OxyCODONE Immed Rel 5 MG TABLET PO PRN (09:11)
[2021-06-29] MEDS: Sacubitril/Valsartan 24/26 MG 1 TABLET PO SCH (19:43)
[2021-06-29] MEDS: Metoprolol XL (24 HR) Succ 25 MG TAB.ER.24H PO SCH (20:11)
[2021-06-29] MEDS ORDERED: Insulin DETEMIR 100 UNIT/ML X5UNITS SUBQ SCH (21:00)
[2021-06-30] MEDS: Piperacillin/Tazobactam 3.375 GM in 0.9 % Sodium Chloride Mini Bag 100 ML IVPB SCH ×2 (00:16→08:30)
[2021-06-30 07:30] LABS: Basophils # 0.1 K/mcL (0.0-0.2); Basophils % 0.5 %; Eosinophils # 0.2 K/mcL (0.0-0.6); Eosinophils % 2.5 %; Hematocrit 27.8 % (37.5-50.1); Hemoglobin 8.7 g/dL (12.9-16.9); Immature Granulocytes % 1.4 % (0-4); Lymphocytes # 0.8 K/mcL (0.6-4.6); Lymphocytes % 8.5 %; Mean Corpuscular HGB Conc 31.3 g/dL (31.6-35.5); Mean Corpuscular Hemoglobin 32.5 pg (28.0-33.3); Mean Corpuscular Volume 103.7 fL (83.0-100.0); Mean Platelet Volume 10.2 fL (9.4-12.4); Monocytes # 0.7 K/mcL (0.0-1.3); Neutrophils # 7.3 K/mcL (1.6-8.9); Platelet Count 158 K/mcL (140-400); Red Blood Count 2.68 M/mcL (4.19-5.50); Red Cell Distribution Width 13.9 % (11.5-14.5); Segmented Neutrophils % 79.1 %; White Blood Count 9.2 K/mcL (4.3-11.1)
[2021-06-30 08:10] LABS: Alanine Aminotransferase 8 Units/L (7-52); Albumin 3.4 g/dL (3.5-5.7); Albumin/Globulin Ratio 1.1 (1.1-2.2); Alkaline Phosphatase 61 Units/L (34-104); Aspartate Amino Transferase 23 Units/L (13-39); BUN/Creatinine Ratio 29 (6-26); Bilirubin,Direct 0.3 mg/dL (0.0-0.2); Bilirubin,Indirect 0.7 mg/dL (0.0-1.0); Blood Urea Nitrogen 39 mg/dL (8-23); Carbon Dioxide 26 mEq/L (23-29); Chloride 106 mEq/L (98-107); Glucose 191 mg/dL (70-105); Magnesium 2.5 mg/dL (1.6-2.6); Osmolality,Calculated 305 (280-300); Potassium 4.4 mEq/L (3.5-5.1); Sodium 140 mEq/L (136-145); Total Protein 6.4 g/dL (6.4-8.9); eGFR For African Americans > 60 (> 60); eGFR For Non-African Americans 52 (> 60)
[2021-06-30] MEDS: Insulin LISPRO 300 UNITS/3 ML VIAL SUBQ SCH ×3 (08:30→17:12)
[2021-06-30] MEDS: *HR* Enoxaparin 40 MG/0.4 ML SYRINGE SQ SCH (08:31)
[2021-06-30] MEDS: allopurinoL 100 MG TABLET PO SCH (08:31)
[2021-06-30] MEDS: Sacubitril/Valsartan 24/26 MG 1 TABLET PO SCH ×2 (08:31→20:31)
[2021-06-30] MEDS: Multivit/Ca/Min/Fe/FA 1 TAB TABLET PO SCH (08:31)
[2021-06-30] MEDS: Lactobacillus 1 EACH CAP.SPRINK PO SCH ×2 (08:32→20:31)
[2021-06-30] MEDS: *HR* OxyCODONE Immed Rel 5 MG TABLET PO PRN ×2 (12:10→20:31)
[2021-06-30] MEDS: Metoprolol XL (24 HR) Succ 25 MG TAB.ER.24H PO SCH (20:31)
[2021-06-30] MEDS ORDERED: Insulin DETEMIR 100 UNIT/ML X5UNITS SUBQ SCH (21:00)
[2021-07-01] MEDS: *HR* Ticagrelor 90 MG TABLET PO SCH ×2 (00:51→08:22)
[2021-07-01] MEDS: *HR* OxyCODONE Immed Rel 5 MG TABLET PO PRN ×3 (06:45→16:27)
[2021-07-01 07:30] VITALS: BP 135/72; PULSE 88; TEMP 97.9; O2SAT 97
[2021-07-01 07:46] LABS: Basophils # 0.1 K/mcL (0.0-0.2); Basophils % 0.6 %; Eosinophils # 0.3 K/mcL (0.0-0.6); Eosinophils % 3.7 %; Hematocrit 26.2 % (37.5-50.1); Hemoglobin 8.2 g/dL (12.9-16.9); Immature Granulocytes % 1.4 % (0-4); Lymphocytes # 0.7 K/mcL (0.6-4.6); Lymphocytes % 8.1 %; Mean Corpuscular HGB Conc 31.3 g/dL (31.6-35.5); Mean Corpuscular Hemoglobin 32.4 pg (28.0-33.3); Mean Corpuscular Volume 103.6 fL (83.0-100.0); Mean Platelet Volume 9.9 fL (9.4-12.4); Monocytes # 0.7 K/mcL (0.0-1.3); Monocytes % 8.5 %; Neutrophils # 6.5 K/mcL (1.6-8.9); Platelet Count 177 K/mcL (140-400); Red Blood Count 2.53 M/mcL (4.19-5.50); Red Cell Distribution Width 13.5 % (11.5-14.5); Segmented Neutrophils % 77.7 %; White Blood Count 8.4 K/mcL (4.3-11.1)
[2021-07-01 08:08] LABS: BUN/Creatinine Ratio 33 (6-26); Blood Urea Nitrogen 35 mg/dL (8-23); Calcium 9.1 mg/dL (8.6-10.3); Carbon Dioxide 26 mEq/L (23-29); Chloride 104 mEq/L (98-107); Glucose 139 mg/dL (70-105); Magnesium 2.3 mg/dL (1.6-2.6); Osmolality,Calculated 296 (280-300); Potassium 4.1 mEq/L (3.5-5.1); Sodium 138 mEq/L (136-145); eGFR For African Americans > 60 (> 60); eGFR For Non-African Americans > 60 (> 60)
[2021-07-01] MEDS: *HR* Enoxaparin 40 MG/0.4 ML SYRINGE SQ SCH (08:22)
[2021-07-01] MEDS: Multivit/Ca/Min/Fe/FA 1 TAB TABLET PO SCH (08:22)
[2021-07-01] MEDS: Lactobacillus 1 EACH CAP.SPRINK PO SCH (08:22)
[2021-07-01] MEDS: allopurinoL 100 MG TABLET PO SCH (08:22)
[2021-07-01] MEDS: Sacubitril/Valsartan 24/26 MG 1 TABLET PO SCH (08:22)
[2021-07-01] MEDS: Insulin LISPRO 300 UNITS/3 ML VIAL SUBQ SCH ×2 (08:24→13:03)
[2021-07-01 15:05] LABS: Influenza A PCR Negative (Negative); Influenza B PCR Negative (Negative); Resp. Syncytial Virus PCR Negative (Negative)
[2021-07-01 15:26] LABS: SARS-CoV-2 by PCR (In House) Negative (Negative)
== END 2021-07-01 16:48 | DRG 480 ==
LOC: 4WAOSI 10:39 → EMEROOARM 10:39 → SUATTDRO 14:46 → 4WAOSI 14:58
PROVIDERS: ADMIT Student in an Organized Health Care Education/Training Program; ATTEND Pharmacist